=== PATIENT | female | born 1935 | race Caucasian/White ===

== ENCOUNTER 2018-08-21 09:00 | Day surgery (SDC) | payer MEDICARE | END 2018-08-21 23:15 | disposition home or self-care (01) | LOC: MOI US 09:00 | DX: N63.42 Unspecified lump in left breast, subareolar (principal) | CPT/HCPCS: 19083; 38505; 76942; 77065; 88305; 88360; A4648 ==

== ENCOUNTER → 2018-08-29 | Outpatient (CLI) | payer MEDICARE ==
[~2018-08-29] MED LIST: METO25ER
== END | disposition home or self-care (01) ==
LOC: LAB SHORT 07:40 → PLD 07:40
DX: C50.912 Malignant neoplasm of unspecified site of left female breast (principal)
CPT/HCPCS: 88305; 88342

== ENCOUNTER 2018-12-15 20:58 | Emergency (ER) | payer MEDICARE ==
[~2018-12-15] VITALS: Ht 167.6 cm; Wt 88.5 kg
[2018-12-15] MEDS ORDERED: METO25ER (21:24)
== END 2018-12-15 23:15 | disposition home or self-care (01) ==
LOC: ER 20:58
DX: S81.811A Laceration without foreign body, right lower leg, initial encounter (principal); W19.XXXA Unspecified fall, initial encounter; C50.919 Malignant neoplasm of unspecified site of unspecified female breast; Z88.5 Allergy status to narcotic agent; Z79.899 Other long term (current) drug therapy
CPT/HCPCS: 12002; 90471; 90714; 99283-25

== ENCOUNTER 2019-01-22 08:18 | Day surgery (SDC) | payer MEDICARE ==
[~2019-01-22 08:18] MED LIST changes: -METO25ER; +METO25ER PO
[2019-02-13] MEDS ORDERED: HYDR1TAB94 PO (09:06)
== END 2019-01-22 22:56 | disposition home or self-care (01) ==
LOC: MOI US 08:18
DX: C50.912 Malignant neoplasm of unspecified site of left female breast (principal); Z79.899 Other long term (current) drug therapy; Z88.5 Allergy status to narcotic agent
CPT/HCPCS: 19285; 38505

== ENCOUNTER 2021-10-01 19:32 | Observation (INO) | payer MEDICARE ==
[~2021-10-01] VITALS: Ht 167.6 cm; Wt 79.6 kg
[~2021-10-01 19:32] MED LIST changes: +HYDR1TAB94 PO
[2021-10-01 20:18] LABS: BASOPHILS ABSOLUTE AUTO 0.03 K/mm3 (0.00-0.23); BASOPHILS PERCENT AUTO 1 % (0-2); EOSINOPHILS PERCENT AUTO 3 % (0-6); Hematocrit 43.6 % (33.0-51.0); Hemoglobin 14.7 g/dL (11.5-16.0); IMMATURE GRAN ABSOLUTE AUTO 0.02 K/mm3 (0.00-0.10); IMMATURE GRAN PERCENT AUTO 0 % (0-1); LYMPHOCYTES ABSOLUTE AUTO 1.19 K/mm3 (0.84-5.20); LYMPHOCYTES PERCENT AUTO 19 % (21-46); MONOCYTES ABSOLUTE AUTO 0.39 K/mm3 (0.16-1.47); MONOCYTES PERCENT AUTO 6 % (4-13); Mean Corpuscular HGB 31.7 pg (26.0-34.0); Mean Corpuscular HGB Conc 33.7 g/dL (31.5-36.5); Mean Corpuscular Volume 94 fL (80-100); NEUTROPHILS ABSOLUTE AUTO 4.43 K/mm3 (1.96-9.15); NEUTROPHILS PERCENT AUTO 71 % (41-73); Platelet Count 187 K/mm3 (150-400); RDW Coefficient Variation 13.7 % (11.7-14.2); RDW Standard Deviation 47.2 fL (35.1-46.3); Red Blood Cell Count 4.64 M/mm3 (3.80-5.20); White Blood Cell Count 6.26 K/mm3 (4.00-11.30)
[2021-10-01 20:36] LABS: Bilirubin, Total 1.7 mg/dL (0.1-1.0); Bun/Creatinine Ratio 14.9 (12.0-20.0); Calcium, Blood 8.6 mg/dL (8.5-10.1); Creatinine, Blood 1.01 mg/dL (0.40-1.00); Potassium, Blood 3.5 mmol/L (3.5-5.5)
[2021-10-02] MEDS ORDERED: ATOR20 PO (00:58)
[2021-10-02] MEDS ORDERED: NEBI5 PO (00:59)
[2021-10-02 04:07] LABS: Stool Occult Blood Guaiac 1 Pos (Neg)
--- NOTE | 2021-10-02 05:24 | NUR ---
NOC SHIFT SUMMARY PT ARRIVED FROM ER @ 0040, TRANSFERRED TO BED FROM STRETCHER W/MINIMAL HANDS ON ASSISTANCE. ORIENTED TO ROOM/UNIT AND CALL LIGHT. VSS PER PT TREND, SR ON TELEMETRY. PT DENIES ANY DIZZINES, CHEST PAIN OR PRESSURE. ORIENTED X4, CALM AND COOPERATIVE PT HAD LOOSE WATERY BM X1 OVERNIGHT W/SOME BLOOD NOTED. NOTIFIED AND ORDER FOR CDIFF AND OCCULT BLOOD RECEIVED. WILL CONTINUE TO MONITOR AND PASS ON TO DAY RN
[2021-10-02 06:01] LABS: Bun/Creatinine Ratio 17.9 (12.0-20.0); Calcium, Blood 8.5 mg/dL (8.5-10.1); Creatinine, Blood 0.95 mg/dL (0.40-1.00); Potassium, Blood 3.7 mmol/L (3.5-5.5)
[2021-10-02 06:33] LABS: C DIFFICILE DNA NEGATIVE (Negative)
[2021-10-02 08:55] LABS: Hematocrit 41.6 % (33.0-51.0); Hemoglobin 13.9 g/dL (11.5-16.0); Mean Platelet Volume 10.9 fL (9.1-12.4); Platelet Count 184 K/mm3 (150-400)
[2021-10-02 09:05] LABS: Anti-Xa UFH, PHA Monitoring <0.10 IU/mL; International Normalized Ratio 1.03; Prothrombin Time Results 10.8 Sec (9.7-11.5)
--- NOTE | 2021-10-02 09:10 | NUR ---
TRIGEMINY: AT ABOUT 0840 MIGUEL,[facility] [employer] REPORTED THAT PT HAD TRIGEMINY RHYTHM FOR ABOUT 1 MINUTE STARTING AT 0834. RHYTHM STRIPS PRINTED. NO ACUTE CHANGE IN PT STATUS, A/O, DENIES CP. PT HAVING ECHO COMPLETED CURRENTLY. WILL CTM AND MAKE DR. SALTER AWARE AT ROUNDS.
[2021-10-02] MEDS ORDERED: ASPI81CH PO (13:12)
--- NOTE | 2021-10-02 14:46 | NUR ---
DISCHARGE: HEPARIN STOPPED AT DISCHARGE. IV'S DC'D WNL. DISCHARGE PACKET PRINTED AND PT EDUCATED. PT LEFT UNIT VIA WHEELCHAIR AT ABOUT 1430
== END 2021-10-02 14:43 | disposition home or self-care (01) ==
LOC: ER 19:32 → PCU 19:33
PROVIDERS: Family Medicine; Student in an Organized Health Care Education/Training Program; ADMIT Internal Medicine
DX: R55 Syncope and collapse (principal); R74.8 Abnormal levels of other serum enzymes; I12.9 Hypertensive chronic kidney disease with stage 1 through stage 4 chronic kidney disease, or unspecified chronic kidney disease; N18.30 Chronic kidney disease, stage 3 unspecified; I25.10 Atherosclerotic heart disease of native coronary artery without angina pectoris; Z87.891 Personal history of nicotine dependence; Z88.0 Allergy status to penicillin; Z88.5 Allergy status to narcotic agent; Z79.899 Other long term (current) drug therapy
CPT/HCPCS: 36415; 71046; 80048; 80053; 82270; 82947; 83735; 84484; 85014; 85018; 85025; 85049; 85520; 85610; 85730; 87493; 93005; 93010; 93246; 93306; 96374; 99285-25; A9270; G0378; J1644; J7030

== ENCOUNTER 2022-10-11 08:42 | Inpatient (IN) | payer MEDICARE ==
[~2022-10-11] VITALS: Ht 167.6 cm; Wt 84.4 kg
[~2022-10-11 08:42] MED LIST changes: +ASPI81CH PO; +ATOR20 PO; +NEBI5 PO
[2022-10-11 10:38] LABS: Albumin, Blood 3.4 g/dL (3.4-5.0); Albumin/Globulin Ratio 1.1 (0.8-1.8); Bilirubin, Total 2.8 mg/dL (0.1-1.0); Bun/Creatinine Ratio 25.4 (12.0-20.0); Calcium, Blood 8.9 mg/dL (8.5-10.1); Creatinine, Blood 1.85 mg/dL (0.40-1.00); Globulin, Blood 3.2 g/dL (2.2-4.0); Potassium, Blood 4.8 mmol/L (3.5-5.5); Total Protein, Blood 6.6 g/dL (6.4-8.2)
[2022-10-11 11:14] LABS: BASOPHILS ABSOLUTE AUTO 0.04 K/mm3 (0.00-0.23); BASOPHILS PERCENT AUTO 0 % (0-2); EOSINOPHILS ABSOLUTE AUTO 0.02 K/mm3 (0.00-0.68); EOSINOPHILS PERCENT AUTO 0 % (0-6); Hematocrit 45.4 % (33.0-51.0); Hemoglobin 15.2 g/dL (11.5-16.0); IMMATURE GRAN ABSOLUTE AUTO 0.05 K/mm3 (0.00-0.10); IMMATURE GRAN PERCENT AUTO 1 % (0-1); LYMPHOCYTES ABSOLUTE AUTO 2.06 K/mm3 (0.84-5.20); LYMPHOCYTES PERCENT AUTO 20 % (21-46); MONOCYTES ABSOLUTE AUTO 0.77 K/mm3 (0.16-1.47); MONOCYTES PERCENT AUTO 7 % (4-13); Mean Corpuscular HGB 31.9 pg (26.0-34.0); Mean Corpuscular HGB Conc 33.5 g/dL (31.5-36.5); Mean Corpuscular Volume 95 fL (80-100); Mean Platelet Volume 12.2 fL (9.1-12.4); NEUTROPHILS ABSOLUTE AUTO 7.48 K/mm3 (1.96-9.15); NEUTROPHILS PERCENT AUTO 72 % (41-73); NRBC ABSOLUTE 0.03 K/mm3 (0.00-0.02); NRBC Auto 0.3 /100 WBC (0.0-0.2); Platelet Count 199 K/mm3 (150-400); RDW Standard Deviation 48.3 fL (35.1-46.3); Red Blood Cell Count 4.76 M/mm3 (3.80-5.20); White Blood Cell Count 10.42 K/mm3 (4.00-11.30)
[2022-10-11 11:19] LABS: International Normalized Ratio 1.32; Prothrombin Time Results 13.6 Sec (9.7-11.5)
[2022-10-11 12:45] LABS: Free Thyroxine 1.53 ng/dL (0.70-1.60)
[2022-10-11 12:46] LABS: Triiodothyronine, Free 1.84 pg/mL (2.18-3.98)
[2022-10-11 14:52] VITALS: BP 108/86
[2022-10-11] MEDS ORDERED: NEBI5 PO (15:03)
[2022-10-11] MEDS ORDERED: POTA10T PO (15:04)
[2022-10-11] MEDS ORDERED: FURO20 PO (15:04)
[2022-10-11 19:51] VITALS: BP 117/85
--- NOTE | 2022-10-11 21:20 | NUR ---
ASSUMED PT ANJALI STEVE RN ON . A&OX4. DENIES ANY CHEST PAIN/PRESSURE. HR AFIB 100-120'S WITH STABLE BP, SEE RECORDED VITAL SIGNS. STATES MILD SOB, ONGOING FOR LAST SEVERAL WEEKS. O2 SATS > 92% ON RA. RESPIRATIOS INCREASED INTO MID 20'S WITH CONVERSATION AND MOVEMENT, NO DESATURATION NOTED. AUDIBLE WHEEZING NOTED WITHOUT NEED FOR STETHOSCOPE. WILL MONITOR. DENIES NAUSEA AT THIS TIME. REPORTS AVOIDING PO INTACT OF LATE BECAUSE OF NAUSEA. PO FLUIDS ENCOURAGED DUE TO NO VOID, BLADDER SCAN 79. WILL MONITOR. DENIES NEEDS AT THIS TIME. CALL LIGHT IN REACH.
[2022-10-11 23:42] VITALS: BP 139/125
--- NOTE | 2022-10-11 23:43 | NUR ---
PT COMPLAINTING OF ANXIETY AND SOB. O2 SATS 98% ON RA, 2 LPM PLACED FOR COMFORT. MEDICATED FOR ANXIETY. AUDIBLE WHEEZING HEARD WITHOUT STETHASCOPE BUT LUNG SOUNDS CLEAR IN ALL AGUDELO. PT UP TO BSC FOR BM, NO URINE VOIDED. AFTER RETURNING TO BED PT REPORT SOB SUBSIDED AND ANXIETY IMPROVED. DR. POOLE INFORMED OF PT NOT PRODUCING URINE AFTER INCREASING PO INTAKE. STARTED ON IV FLUIDS. WILL MONITOR CLOSELY FOR FLUID OVERLOAD. LEFT RESTING IN BED. CALL LIGHT IN REACH. BED IN LOW POSITION.
[2022-10-12] VITALS (12 sets, daily range): BP systolic 82–121; BP diastolic 52–86
[2022-10-12 04:03] LABS: Albumin, Blood 3.2 g/dL (3.4-5.0); Albumin/Globulin Ratio 1.1 (0.8-1.8); Bilirubin, Total 2.8 mg/dL (0.1-1.0); Bun/Creatinine Ratio 25.6 (12.0-20.0); Calcium, Blood 8.4 mg/dL (8.5-10.1); Creatinine, Blood 2.03 mg/dL (0.40-1.00); Globulin, Blood 2.8 g/dL (2.2-4.0); Potassium, Blood 4.1 mmol/L (3.5-5.5)
--- NOTE | 2022-10-12 05:06 | NUR ---
HR CONTINUES IN THE 100'S-120'S. DENIES CHEST PAIN. ANXIETY IMPROVED. PT CONTINUES TO HAVE AUDIBLE WHEEZING WITH CLEAR LUNG AGUDELO THROUGHT. BP REMAINS STABLE. PT UP TO BSC WITH UNSTEADY GAIT, 1 ASSIST. VOIDS 125 ML CLEAR, GAGAN URINE WITH STRONG ODER. DR. POOLE INFORMED OF PT LOW URINE OUTPUT, NO NEW ORDERS AT THIS TIME. IV FLUIDS CONTINUE TO INFUSE ORDERED. NO SWELLING NOTED. LEFT RESTING IN BED. CALL LIGHT IN REACH. BED IN LOW POSITION.
--- NOTE | 2022-10-12 11:14 | NUR ---
ECHO IS COMPLETE. PT'S PRESSURES HAVE BECOME SOFT, PT HAS NOT HAD ANY SIGNIFICANT RATE CHANGE WITH CARDIZEM AT 20ML/HR, BP IS CONSISTANTLY BECOMING MORE SOFT. DECISION WAS MADE TO TITRATE CARDIZEM TO 15ML/HR.
[2022-10-12 12:10] LABS: Albumin, Blood 3.2 g/dL (3.4-5.0); Anion Gap 11 mmol/L (6-16); Blood Urea Nitrogen 51 mg/dL (8-24); Bun/Creatinine Ratio 24.2 (12.0-20.0); CO2, Blood 18 mmol/L (21-32); Calcium, Blood 8.6 mg/dL (8.5-10.1); Chloride, Blood 102 mmol/L (98-108); Creatinine, Blood 2.11 mg/dL (0.40-1.00); Glomerular Filtration Rate 22 (60-); Glucose, Blood 145 mg/dL (70-99); Magnesium, Blood 1.8 mg/dL (1.6-2.4); Phosphorus, Blood 3.9 mg/dL (2.5-4.9); Potassium, Blood 3.6 mmol/L (3.5-5.5); Sodium, Blood 131 mmol/L (136-145)
--- NOTE | 2022-10-12 13:27 | NUR ---
Spiritual care visit conducted. Patient is lying in bed and alert but struggling with weakness, slurry words and some confusion. Her dtr. Reyna is bedside. She tells me about the family dynamic and that she has 5 siblings and one sister that lives next door to patient and Reyna (patient lives in Reyna's house). They share about their Confucianist audra and strong family whiting and prayers. Patient asks for prayer which I gladly supply. Patient gets sleepy during the prayer but voices appreciation. Reyna expresses gratitude and states that she feels more at peace. I will continue to remain available to patient and family.
--- NOTE | 2022-10-12 14:17 | NUR ---
Pt resting in bed upon arrival. Pt's daughter Reyna at bedside. Pt is A&OX4. Engaged in therapeutic discussion regarding advanced care planning. Pt reports living at home with her daughter. Pt has several other children and most live out of area. Daughter reports Pt is not able to ambulate as far as she once did. Over the last couple of months Pt is able to only ambulate to the bathroom. Pt also requires assistance with bathing and dressing. Provided gentle discussion regarding planning for the future. Discussed code status wishes. Educated on life sustaining treatments including risks and implications to CPR/Intubation. Offered therapeutic listening and answered questions. Pt's wishes are DNR. Pt and daughter agreeable to complete POLST. Assisted with completing POLST and at the request of the PT, daughter signs POLST. Spoke with Dr Duarte and placed DNR order in [facility] per V/O from Dr Duarte. Plan: Obtain copy of POLST upon physician signature and deliver to medical records. Palliative Care will remain available
--- NOTE | 2022-10-12 17:36 | NUR ---
PT A/O X4, ANSWERING QUESTIONS APPROPRIATELY IN FULL SENTENCES. PT DENIES CP. DOES COMPLAIN OF SOME SOB THAT DID RESOLVE WITH A BREATHING TREATMENT. PT HAS NOTED WHEEZING WHEN TALKING TO HER, BUT HER LUNG SOUNDS ARE CLEAR WITH BRONCHIAL WHEEZE NOTED TO AUSCILTATION. REMAINS ON RA T/O THE DAY. SHE REMAINS IN A-FIB, CARDIZEM HAS BEEN TITRATED TO 15ML/HR WHICH HER BLOOD PRESSURE IS TOLERATING WELL. PT REPORTS INTERMITTENT WEAKNESS. TRACE EDEMA NOTED TO LOWER LEGS BILAT. PULSES +2 T/O ALL 4 EXTREMETIES. 24 HOUR URINE COLLECTION HAS BEGAN, PT WITH VERY SCANT OUTPUT TODAY. DR LAWSON HAS CONSULTED
[2022-10-12 18:51] LABS: Source, Urine Clean Catch
[2022-10-12 18:57] LABS: Appearance, Urine Hazy (Clear); Bilirubin, Urine Neg (Neg); Blood, Urine 3+ (Neg); Color, Urine Yellow (P-Yellow); Glucose Qualitative, Urine Neg (Neg); Ketones, Urine Neg (Neg); Leukocyte Esterase, Urine 3+ (Neg); Nitrite, Urine Neg (Neg); Protein, Urine 2+ (Neg); Urobilinogen, Urine NORM (Normal)
[2022-10-12 19:04] LABS: Bacteria Many /hpf; Squamous Epithelial Cells Mod /hpf (Few); Transitional Epithelial Cells Few /hpf (0-Rare); White Blood Cells, Urine 25-50 /hpf (0-5)
--- NOTE | 2022-10-12 23:03 | NUR ---
ASSUMED CARE AT 1900 PT SITTING ON BSC AT SHIFT CHANGE. SHE IS A ONE PERSON ASSIST TO STAND AND ASSIST WITH GETTING BACK INTO BED; MINIMAL URINE OUTPUT IN BSC. SHE IS ORIENTED X3-4; VERY TIRED AND NOT PARTICIPATING IN CONVERSATIONS; SHE IS SLEEPING WHEN NOT STIMULATED; GENERALIZED WEAKNESS NOTED. SPO2 >95% ON RA. AFEBRILE. AFIB NOTED WITH HR 100-125; CARDIZEM TITRATED DOWN TO 10MG/HR DUE TO BP NOT TOLERATING 15 ANYMORE; SBP 80-90'S, MAP 70-80'S; NO C/O CHEST PAIN OR DYSPNEA. 24 [address] COLLECTION IN PL[address] RIGHT NOW. NS INFUSING AT 75ML/HR. SEE SHIFT ASSESSMENT FOR FULL ASSESSMENT. PT DAUGHTER ALAN AT BEDSIDE AT SHIFT CHANGE. SHE LEFT AROUND 1999.
[2022-10-13] VITALS (22 sets, daily range): BP systolic 76–110; BP diastolic 53–85
[2022-10-13 03:54] LABS: Hematocrit 38.3 % (33.0-51.0); Hemoglobin 13.4 g/dL (11.5-16.0)
[2022-10-13 04:17] LABS: Albumin, Blood 3.2 g/dL (3.4-5.0); Anion Gap 10 mmol/L (6-16); Blood Urea Nitrogen 51 mg/dL (8-24); Bun/Creatinine Ratio 21.3 (12.0-20.0); CO2, Blood 18 mmol/L (21-32); Calcium, Blood 8.3 mg/dL (8.5-10.1); Chloride, Blood 97 mmol/L (98-108); Creatinine, Blood 2.39 mg/dL (0.40-1.00); Glomerular Filtration Rate 19 (60-); Glucose, Blood 149 mg/dL (70-99); Magnesium, Blood 1.6 mg/dL (1.6-2.4); Phosphorus, Blood 4.8 mg/dL (2.5-4.9); Potassium, Blood 4.1 mmol/L (3.5-5.5); Sodium, Blood 125 mmol/L (136-145)
--- NOTE | 2022-10-13 06:29 | NUR ---
END OF SHIFT SUMMARY NO ACUTE EVENTS OVERNIGHT. THIS AM PT STATES THAT SHE IS FEELING BETTER. SHE WAS ABLE TO SLEEP A MAJORITY OF THE NIGHT. PT IS A/O X4 AND MORE COMMUNICATIVE NOW. SPO2 >96% ON RA; ONE EPISODE OF DYSPNEA WITH EXERTION TO THE BSC BUT SPO2 DID NOT DECREASE AND THE DYSPNEA RESOLVED WITH REST. CARDIZEM ON SB SINCE 2247; AFIB CONT TO SHOW BUT HR 80-120; SBP 80-110, MAP 70-80'S. ONE EPISODE OF NAUSEA NOTED, ZOFRAN GIVEN WITH RELIEF. 24 HOUR URINE COLLECTION STILL IN PLACE UNTIL 1744 TODAY; VERY LITTLE URINE OUTPUT THIS SHIFT; BLADDER SCAN DONE AT 0530 THAT SHOWED 125ML. NS INFUSED DURING THE NIGHT AT 75ML/HR; AFTER BLADDER SCAN, NS PLACED ON SB. WILL REPORT TO AM RN WHEN AVAILABLE.
--- NOTE | 2022-10-13 10:01 | NUR ---
AM NOTE: ALERT AND ORIENTED X3-4. VERY SOFT SPOKEN. PERRLA, WEARING GLASSES. DENTURES IN PLACE. NO FACIAL DROOP NOTED. SPEECH CLEAR. BILATERAL RAILROAD CAR CLEANER STRENGTH AND EXTREMITY MOVEMENTS. UP TO BSC WITH ONE PERSON ASSIST. OT/PT ORDERS IN PLACE. ON ROOM AIR SATING ABOVE 95%. LUNGS CLEAR AND DIM IN BASES. OCCASIONAL UPPER AIRWAY WHEEZE. EVEN AND UNLABORED RESPIRATIONS. SOB WHEN UP TO BSC. ON TELE SHOWING AFIB WITH HR 90-110'S. CARDIZEM GTT TURNED OFF BY [facility] SHIFT NURSE. PO CARDIZEM GIVEN THIS AM. BP ON SOFTER SIDE. PPP. DENIES CHEST PAIN/PRESSURE/PALPITATIONS. MINIMAL EDEMA TO UPPER AND LOWER EXTREMITIES. UPON AM ASSESSMENT PATIENT DENIED ABDOMINAL PAIN/NAUSEA. CLEAR LIQUID DIET AT THIS TIME. SPEECH THERAPY ORDERS IN PLACE, PLAN TO SEE THIS AFTERNOON. PATIENT UP TO BSC MULTIPLE TIMES THIS AM HAVING SMALL LIQUID BROWN STOOLS. UPON GETTING UP TO BSC THIS LAST TIME, PATIENT STATES SHE IS SICK TO HER STOMACH, NO EMESIS. DR. CASAREZ CALLED AND UPDATED ON NAUSEA, FREQUENT BOWEL MOVEMENTS AND MINIMAL URINE OUTPUT. ORDERS FOR ZOFRAN IV 4MG PRN Q4, PROTONIX 40 MG IV BID AND TO DC CURRENT PO PEPCID. ORDERS IN PLACE. DR. LAWSON BY THIS AM, THIS RN DISCUSSED MINIMAL URINE OUTPUT. ORDERS FOR LASIX IV 40MG X1 NOW, DC CURRENT PO LASIX, AND CONTINUE IV FLUIDS. LATER THIS AM IV FLUID CHANGE ORDER FROM DR. LAWSON TO SODIUM BICARB. IV FLUIDS INFUSING PER EMAR. 24 HOUR URINE COLLECTION IN PROGRESS. BLADDER SCAN COMPLETED THIS AM SHOWING 140 ML. PATIENT DENIES FEELING LIKE SHE HAS TO PEE. FAMILY AT BEDSIDE AND UPDATED ON ORDER CHANGES AND PLAN OF CARE. DNR BAND ON LEFT WRIST. CALL LIGHT IN REACH. PATIENT AND FAMILY DENIES NEEDS AT THIS TIME.
--- NOTE | 2022-10-13 11:43 | NUR ---
Spiritual care visit conducted. Patient is lying in bed and resting. Dtr. Reyna is bedside and explains that they are still waiting for information form the medical team. She also tells me that many family members are travelling from several different areas to come to the hospital to support Renita. She has her eyes closed but chimes in on the conversation every once in a while. We talks about the family dynamics and the deep love the family poccesses for each other. There is more conversation around their audra and the strength it brings. I provide therapeutic listening and prayer. Reyna responded well and voiced appreciation for the visit. I will cotninue to remain available to patient and family.
--- NOTE | 2022-10-13 12:11 | NUR ---
Supportive visit this AM. Pt resting in bed with daughter Reyna at bedside. Offered therapeutic listening as daughter and Pt discusses kidney function getting worse. Continued therapeutic listening and answered questions. Encouraged Pt to discuss with family if Kidney functions do not improve and dialisys becomes recommended what would her goals be. Continued therapeutic listening and validated concerns. POLST signed by physician. Obtained copy of POLST and delivered to medical records via hospital tube system. Gave daughter original POLST and instructed to take home and hang on refridgerator. Pt and daughter express appreciation and report no other concerns at this time. Spoke with Primary RN Indu and discussed case. Palliative Care will remain available
[2022-10-13 12:53] LABS: Source, Urine Foley catheter
--- NOTE | 2022-10-13 13:05 | NUR ---
CLEMENTS CATH PLACED PER DR. LAWSON. NEW URINE SAMPLE SENT PER PROTOCOL. DR. CASAREZ IN TO SEE PATIENT. SEE NEW ORDERS PLACED. DAUGHTER AT BEDSIDE FOR HOSP VISIT.
[2022-10-13 13:10] LABS: Appearance, Urine Clear (Clear); Bilirubin, Urine Neg (Neg); Blood, Urine Neg (Neg); Color, Urine Yellow (P-Yellow); Glucose Qualitative, Urine Neg (Neg); Ketones, Urine Neg (Neg); Leukocyte Esterase, Urine Neg (Neg); Nitrite, Urine Neg (Neg); Protein, Urine 2+ (Neg); Specific Gravity, Urine 1.025 (1.003-1.022); Urobilinogen, Urine NORM (Normal)
[2022-10-13 13:25] LABS: Hyaline Casts TNTC /lpf (0-2)
[2022-10-13 13:26] LABS: Red Blood Cells, Urine 0-2 /hpf (0-2); White Blood Cells, Urine 0-2 /hpf (0-5)
[2022-10-13 13:27] LABS: Bacteria Rare /hpf; Calcium Oxalate Crystals Few /hpf; Squamous Epithelial Cells Few /hpf (Few)
[2022-10-13 14:01] LABS: Adenovirus F 40/41 Not Detected (NOT DETECT); Astrovirus Not Detected (NOT DETECT); Campylobacter Sp Not Detected (NOT DETECT); Cryptosporidium Not Detected (NOT DETECT); Cyclospora Cayetanensis Not Detected (NOT DETECT); E. Coli O157 Not Detected (NOT DETECT); Entamoeba Histolytica Not Detected (NOT DETECT); Enteroaggregative E. coli-EAEC Not Detected (NOT DETECT); Enteropathogenic E. coli-EPEC Not Detected (NOT DETECT); Enterotoxigenic E. coli-ETEC Not Detected (NOT DETECT); Giardia Lamblia Not Detected (NOT DETECT); Norovirus GI/GII Not Detected (NOT DETECT); Plesiomonas Shigelloides Not Detected (NOT DETECT); Rotavirus A Not Detected (NOT DETECT); Salmonella Sp Not Detected (NOT DETECT); Sapovirus Not Detected (NOT DETECT); Shiga Toxin-prod E. coli-STEC Not Detected (NOT DETECT); Shigella/Enteroin E. coli-EIEC Not Detected (NOT DETECT); Vibrio Cholerae Not Detected (NOT DETECT); Vibrio Sp Not Detected (NOT DETECT); Yersinia Enterocolitica Not Detected (NOT DETECT)
--- NOTE | 2022-10-13 14:02 | NUR ---
BLOOD PRESSURE 76/53. NS 500ML BOLUS GIVEN PER DR. SMITH ORDERS. BP IMPROVED TO 93/78. HR 80'S. NEW ORDERS FOR HOME PO METOPROLOL, ALTHOUGH NOT ABLE TO GIVE DUE TO LOW BLOOD PRESSURE. PO CARDIZEM DC'D PER HOSP. URINE AND STOOL SAMPLES PENDING. ECHO RESULTS PENDING. ORDERS FOR BILATERAL LOWER EXTREMITY VENOUS DUPLEX TO RULE OUT CLOTS. SPEECH THERAPY IN ROOM AT THIS TIME. SODIUM BICARB FLUIDS CONTINUE TO INFUSE PER EMAR. 24 HOUR URINE IN PROGRESS. DAUGHTER REMAINS AT BEDSIDE.
--- NOTE | 2022-10-13 15:18 | NUR ---
PATIENT BLOOD PRESSURE REMAINS SOFT. SOB WHEN UP TO BSC, CONTINUES TO HAVE LOOSE/LIQUID BOWEL MOVEMENTS. LUNGS REMAINS CLEAR AND DIM IN BASES. DR. CASAREZ CALLED AND UPDATED. NEW ORDER FOR ADDITIONAL NS 500ML BOLUS FOLLOWED BY NS AT 50ML/HR IN ADDITION TO CURRENT SODIUM BICARB AT 50 ML/HR. PATIENT AND FAMILY UPDATED.
--- NOTE | 2022-10-13 18:22 | NUR ---
SHIFT SUMMARY: FAMILY REMAINS AT BEDSIDE AND UPDATED THROUGHOUT SHIFT. ECHO READ BUT RESULTS NOT CROSSING OVER TO [facility]. X RAY TECHNICIAN WAYNE STEEN PLACED CALL TO CARDIOLOGY AND RESULTS READ. DR. CASAREZ UPDATED ON ECHO RESULTS. PLAN TO SPEAK WITH FAMILY IN AM ABOUT ECHO. VENOUS DUPLEX COMPLETED. CLEMENTS CATH REMAINS IN PLACE DRAINING MINIMAL URINE OUTPUT, 195ML COLLECTED THIS SHIFT. MULTIPLE LOOSE BOWEL MOVEMENTS. NS AND SODIUM BICARB INFUSING PER EMAR. EATING AND DRINKING SMALL AMOUNTS. ONE EPISODE OF NAUSEA THIS SHIFT. BP IMPROVING WITH MOST RECENT READING 101/76 (84). HR 90-110'S REMAINS IN AFIB. PATIENT RECENTLY COMPLAINS OF NECK SORENESS, AND REQUESTING HEATING PAD. NEURO REMAINS UNCHANGED THROUGHOUT SHIFT. ABLE TO MAKE NEEDS KNOWN. USING CALL LIGHT. DR. CASAREZ UPDATED THROUGHOUT SHIFT.
--- NOTE | 2022-10-13 19:45 | NUR ---
ASSESSMENT/ASSUMED CARE PT HAVING A BED BATH AND LINEN CHANGE WITH PLATE PUT IN WORKER'S. PT AWAKE AND A&O. FOLLOWS INSTRUCTIONS. LUNGS CLEAR BUT DECREASED. PT ON ROOMAIR. RESP EVEN AND NONLABORED. PT REPORTS SOB WHILE LYING FLAT. IMPROVES WHEN SITTING UP. RED AREA NOTED UNDER LEFT BREAST. CLEANED AND PAT DRY. PILLOW CASE UNDER BREAST TO PREVENT MOISTURE. HEART RATE IRREGULAR-AFIB. KAVON HOSE ON. BT+ ABD SOFT AND NONTENDER. DENIES N/V. IV POWER GLIDE TO RIGHT UPPER ARM, DRSG INTACT. NS AT 50 ML/HR AND BICARB AT 50 ML/HR. SITE CLEAR. IV TO RIGHT WRIST FLUSHED WITHOUT DIFFICULTY. CLEMENTS CATH PATENT SLIGHT AMT CLEAR YELLOW URINE DRAINING. PLATE PUT IN WORKER DONING CATH CARE.
[2022-10-13 20:11] LABS: Protein, Urine Quantitative 37.3 mg/dL (0.0-11.9)
--- NOTE | 2022-10-13 20:11 | NUR ---
HEART RATE CONVERTED TO SINUS IN THE 60-70'S
--- NOTE | 2022-10-13 22:27 | NUR ---
o2 PT UP TO BSC THAN BACK TO BED. SPO2 DOWN TO 84% AND ONLY BACK UP TO 90-91% WHEN BACK TO BED. PLACED ON 2 LITER O2 VIA NC. SPO2 NOW 95-96%
[2022-10-14] VITALS (7 sets, daily range): BP systolic 95–110; BP diastolic 61–86
[2022-10-14 04:33] LABS: BASOPHILS ABSOLUTE AUTO 0.02 K/mm3 (0.00-0.23); BASOPHILS PERCENT AUTO 0 % (0-2); EOSINOPHILS ABSOLUTE AUTO 0.07 K/mm3 (0.00-0.68); EOSINOPHILS PERCENT AUTO 1 % (0-6); Hematocrit 33.6 % (33.0-51.0); Hemoglobin 11.9 g/dL (11.5-16.0); IMMATURE GRAN ABSOLUTE AUTO 0.03 K/mm3 (0.00-0.10); IMMATURE GRAN PERCENT AUTO 0 % (0-1); LYMPHOCYTES ABSOLUTE AUTO 1.39 K/mm3 (0.84-5.20); LYMPHOCYTES PERCENT AUTO 15 % (21-46); MONOCYTES ABSOLUTE AUTO 0.71 K/mm3 (0.16-1.47); MONOCYTES PERCENT AUTO 7 % (4-13); Mean Corpuscular HGB 32.1 pg (26.0-34.0); Mean Corpuscular HGB Conc 35.4 g/dL (31.5-36.5); Mean Corpuscular Volume 91 fL (80-100); NEUTROPHILS ABSOLUTE AUTO 7.34 K/mm3 (1.96-9.15); NEUTROPHILS PERCENT AUTO 77 % (41-73); Platelet Count 170 K/mm3 (150-400); RDW Coefficient Variation 13.8 % (11.7-14.2); RDW Standard Deviation 43.8 fL (35.1-46.3); Red Blood Cell Count 3.71 M/mm3 (3.80-5.20); White Blood Cell Count 9.56 K/mm3 (4.00-11.30)
[2022-10-14 04:58] LABS: Albumin, Blood 2.7 g/dL (3.4-5.0); Albumin/Globulin Ratio 1.1 (0.8-1.8); Bilirubin, Total 2.1 mg/dL (0.1-1.0); Calcium, Blood 7.7 mg/dL (8.5-10.1); Creatinine, Blood 2.35 mg/dL (0.40-1.00); Globulin, Blood 2.5 g/dL (2.2-4.0); Magnesium, Blood 1.4 mg/dL (1.6-2.4); Phosphorus, Blood 3.5 mg/dL (2.5-4.9); Potassium, Blood 3.4 mmol/L (3.5-5.5); Total Protein, Blood 5.2 g/dL (6.4-8.2)
--- NOTE | 2022-10-14 05:18 | NUR ---
CALL TO MD DR LAWSON NOTIFIED REGARDING AM LABS. SEE NEW ORDERS
--- NOTE | 2022-10-14 05:59 | NUR ---
SHIFT SUMMARY PT RESTING QUIETLY. TURNED PER REQUEST. VSS. MAG RIDER INFUSING AT THIS TIME. DC'D BICARB GTT. DENIES PAIN. INCONT SMALL AMT STOOL. CLEMENTS CATH PATENT DRAINING CLEAR YELLOW URINE. LABS CALLED TO DR LAWSON THIS AM. REPORT TO ON COMING NURSE
--- NOTE | 2022-10-14 06:32 | NUR ---
MD VISIT DR LAWSON INTO SEE PT. RECEIVED ORDER TO STOP IV FLUID, GIVE BUMEX AND DIETARY CONSULT FOR CLINIMIX.
--- NOTE | 2022-10-14 09:38 | NUR ---
AM NOTE: PATIENT ALERT AND ORIENTED. STATES SHE IS FEELING MUCH BETTER COMPARED TO YESTERDAY. DAUGHTERS AT BEDSIDE UPON MEDIUM CYCLE SALESPERSON. PERRLA, WEARING GLASSES. DENIES N/T. OVERALL WEAK, AND STATES "I DONT HAVE MUCH ENERGY". INTERMIT RIGHT SHOUDLER AND LEFT HIP CHRONIC PAIN. DENIES NEED FOR LIDOCAINE PATCH THIS AM. USING BED TOMLINSON DUE TO LOW ENERGY AND SOB. TELE SHOWING SR WITH HR 70'S. BP ON SOFTER SIDE. PPP. MINIMAL EDEMA TO BLE/BUE. CARDIOLOGY CONSULT IN PLACE. DR. DE LA CRUZ TO BEDSIDE. ECHO REPORT IN CHART. PLAN FOR DIETARY CONSULT TO START CLINIMIX. CALL PLACED TO CONFIRM WITH MALIA, LEATHER ETCHER. EATING AND DRINKING SMALL AMOUNTS. BOWEL TONES PRESENT. CONTINUES TO HAVE LIQUID/LOOSE BOWEL MOVEMENTS. CLEMENTS CATH IN PLACE DRAINING TO GRAVITY. CATH CARE COMPLETED THIS AM AND WITH EACH BOWEL MOVEMENT. DENIES ABDOMINAL PAIN/NAUSEA. SOB WITH MOVEMENTS AND TALKING LUNGS SOUNDING CLEAR AND DIM IN BASES. SATING ABOVE 95% ON ROOM AIR. OCCASIONAL UPPER RESPIRATORY WHEEZE HEARD. PLAN FOR VQ LUNG SCAN LATER THIS AFTERNOON. CHILDREN AT BEDSIDE FOR PROVIDOR ROUNDING. ACHS BLOOD SUGAR CHECKS. CALL LIGHT IN REACH. FAMILY REMAINS AT BEDSIDE.
--- NOTE | 2022-10-14 10:32 | NUR ---
Spiritual care visit conducted. Patient is lying in bed and alert. The room is full with family members who have come from out of town to support the patient. They tell me a little bit about where they are from and what is important to them about their mother. Patient states that she feels much better this morning and is thankful for all the work the medical staff has done to care for her needs. I provide therapeutic listening and prayer. Family becomes tearful at the prayer and voice that their hearts were moved by the words. They express gratitude and exhibit evidence being comforted.
--- NOTE | 2022-10-14 11:33 | NUR ---
STAT EKG COMPLETED PER DR. DE LA CRUZ AND PLACED IN CHART. FAMILY REMAINS AT BEDSIDE. AFTERNOON VITALS STABLE. PATIENT REFUSING HIPS TO BE FLOATED. CLEMENTS CATH CONTINUES TO DRAIN.
--- NOTE | 2022-10-14 11:50 | NUR ---
DR. DE LA CRUZ BY TO REVIEW EKG. FAMILY AT BEDSIDE FOR PROVIDER VISIT. NO NEW ORDERS FOR THIS RN TO PLACE.
--- NOTE | 2022-10-14 16:13 | NUR ---
VQ LUNG SCAN COMPLETED, WAITING FOR RESULTS. DR. CASAREZ UPDATED ON TOTAL OUTPUT OF CLEMENTS SO FAR THIS SHIFT 1,800ML, STABLE BLOOD SUGARS, DIETARY CONSULT, AND VQ LUNG SCAN BEING COMPLETED. ORDER FOR THIS RN TO PLACE: DC ACHS BLOOD SUGAR CHECKS. ORDER DISCONTINUED. PATIENT EVENING VITALS STABLE. SLEEPING AT THIS TIME.
--- NOTE | 2022-10-14 17:43 | NUR ---
SHIFT SUMMARY: PATIENT REMAINS ALERT AND ORIENTED. ON ROOM AIR SATING MID-HIGH 90'S. TELE CONTINUES TO SHOW SR WITH PVC'S HR 60-70'S. DENIES CHEST PAIN/PRESSURE. PO AMIO GIVEN PER DR. DE LA CRUZ ORDERS. PLAN FOR EKG TOMORROW AM AT 0500. DENIES ABDOMINAL PAIN/NAUSEA THIS SHIFT. CLEMENTS OUTPUT 1,800ML. CONTINUES TO HAVE LOOSE STOOL, USING BEDPAN. STOOL SOFTNER HELD THIS AM. FAMILY AT BEDSIDE WHILE PATIENT IS EATING DINNER. SEE PREVIOUS NOTES FOR FURTHER UPDATES. CALL LIGHT IN REACH.
--- NOTE | 2022-10-14 19:55 | NUR ---
ASSESSMENT/ASSUMED CARE PT SITTING UP IN BED RESTING QUIELTY. PT STATES,"I'M FEELING MUCH BETTER, JUST TIRED". DENIES PAIN OR DISCOMFORT. VSS. HS MEDS GIVEN. LUNGS CLEAR BUT DECREASED IN THE BASES ON ROOMAIR. RESP EVEN AND NONLABORED. DENIES SOB OR COUGH. HEART RATE REGULAR IN THE 60-70'S. BP SLIGHTLY HYPOTENSIVE BUT MAP GREATER THAN 65. 1+ BILAT PEDAL EDEMA NOTED. BT+ ABD SOFT AND NONTENDER. DENIES N/V. IV POWER GLIDE TO RIGHT UPPER ARM SALINE LOCKED. ABLE TO PULL BLOOD AND FLUSH WITHOUT DIFFICULTY. IV RIGHT WRIST SALINE LOCKED, ABLE TO FLUSH WITHOUT DIFFICULTY. CLEMENTS CATH PATENT DRAINING CLEAR YELLOW URINE.
[2022-10-15 03:48] VITALS: BP 98/53
[2022-10-15 04:18] LABS: Hematocrit 32.6 % (33.0-51.0); Hemoglobin 11.5 g/dL (11.5-16.0)
--- NOTE | 2022-10-15 05:43 | NUR ---
SHIFT SUMMARY PT RESTED DURING THE NIGHT. IMPROVED URINE OUTPUT 1800 ML FOR NIGHT. VSS. PT ASSISTING WITH TURNING. DENIES PAIN OR DISCOMFORT. HEART RATE IN THE 60'S MOST OF THE NIGHT WITH HEART RATE UP TO 100'S AT TIMES. BP STABLE. REPORT TO ON COMING NURSE
[2022-10-15 06:54] LABS: Alanine Aminotransfer (ALT/SGP 89 U/L (12-78); Albumin, Blood 2.4 g/dL (3.4-5.0); Anion Gap 7 mmol/L (6-16); Aspartate Aminotrans (AST/SGOT 42 U/L (12-37); Blood Urea Nitrogen 42 mg/dL (8-24); Bun/Creatinine Ratio 21.8 (12.0-20.0); CO2, Blood 26 mmol/L (21-32); Calcium, Blood 7.7 mg/dL (8.5-10.1); Chloride, Blood 105 mmol/L (98-108); Creatinine, Blood 1.93 mg/dL (0.40-1.00); Glomerular Filtration Rate 25 (60-); Glucose, Blood 86 mg/dL (70-99); Magnesium, Blood 1.6 mg/dL (1.6-2.4); Phosphorus, Blood 3.1 mg/dL (2.5-4.9); Potassium, Blood 3.1 mmol/L (3.5-5.5); Sodium, Blood 138 mmol/L (136-145)
[2022-10-15 07:41] VITALS: BP 123/58
--- NOTE | 2022-10-15 07:45 | NUR ---
I CALLED DR. LAWSON THAT THE PT'S AM LABS WERE IN PER HIS REQUEST.
[2022-10-15 12:14] VITALS: BP 115/77
[2022-10-15 15:53] VITALS: BP 127/72
--- NOTE | 2022-10-15 16:46 | NUR ---
SHIFT SUMMARY PT IS A&OX4, 1P SBA FOR TX, AND CAN MAKE HER NEEDS KNOWN. SHE HAS HAD MANY VISITORS TODAY AND THEY WERE UPDATED ON HER CARE PER HER REQUEST. ON TELE PT HAS BEEN SR W/ PACS, PVCS, BBB, AND PROLONGED QTC 60'S-70'S. SHE DENIES ANY AOB AND HAS BEEN ON RA WITH SPO2>95%. SHE WORKED WITH PT TODAY, WAS UP IN THE CHAIR FOR HALF OF THE DAY, AND SHE WAS GIVEN A BEDBATH. THE PT IS VERY "WORN OUT" AND REFUSED WORKING WITH OT. SHE HAS HAD NO ACUTE EVENTS. FAMILY AND PT EDUCATED ON FIRE IGNITION RISKS AND SAFETY.
[2022-10-15 19:54] VITALS: BP 110/70
[2022-10-16 00:35] VITALS: BP 117/63
[2022-10-16 04:48] VITALS: BP 119/67
--- NOTE | 2022-10-16 04:56 | NUR ---
SHIFT SUMMARY NO ACUTE CHANGES OVERNIGHT. PT CONTINUES TO DENY CHEST PAIN/PRESSURE THROUGHOUT THIS SHIFT. VITALS STABLE. CONTINUES TO BE IN SR WITH BBB, OCCASIONAL PAC'S/PVC'S. A&O. ABLE TO MAKE NEEDS KNOWN. EKG TO BE PERFORMED THIS AM, BEFORE SHIFT ENDS. BED IN LOWEST POSITION AND CALL LIGHT WITHIN REACH. THIS RN WILL CONTINUE TO MONITOR UNTIL SHIFT CHANGE AT 0700.
[2022-10-16 06:08] LABS: BASOPHILS ABSOLUTE AUTO 0.02 K/mm3 (0.00-0.23); BASOPHILS PERCENT AUTO 0 % (0-2); EOSINOPHILS ABSOLUTE AUTO 0.12 K/mm3 (0.00-0.68); EOSINOPHILS PERCENT AUTO 2 % (0-6); Hematocrit 36.6 % (33.0-51.0); Hemoglobin 12.6 g/dL (11.5-16.0); IMMATURE GRAN ABSOLUTE AUTO 0.01 K/mm3 (0.00-0.10); IMMATURE GRAN PERCENT AUTO 0 % (0-1); LYMPHOCYTES ABSOLUTE AUTO 1.77 K/mm3 (0.84-5.20); LYMPHOCYTES PERCENT AUTO 22 % (21-46); MONOCYTES ABSOLUTE AUTO 0.92 K/mm3 (0.16-1.47); MONOCYTES PERCENT AUTO 12 % (4-13); Mean Corpuscular HGB 32.5 pg (26.0-34.0); Mean Corpuscular HGB Conc 34.4 g/dL (31.5-36.5); Mean Corpuscular Volume 94 fL (80-100); Mean Platelet Volume 10.9 fL (9.1-12.4); NEUTROPHILS ABSOLUTE AUTO 5.07 K/mm3 (1.96-9.15); NEUTROPHILS PERCENT AUTO 64 % (41-73); Platelet Count 174 K/mm3 (150-400); RDW Coefficient Variation 15.1 % (11.7-14.2); RDW Standard Deviation 48.6 fL (35.1-46.3); Red Blood Cell Count 3.88 M/mm3 (3.80-5.20); White Blood Cell Count 7.91 K/mm3 (4.00-11.30)
[2022-10-16 06:24] LABS: Alanine Aminotransfer (ALT/SGP 78 U/L (12-78); Albumin, Blood 2.4 g/dL (3.4-5.0); Anion Gap 5 mmol/L (6-16); Aspartate Aminotrans (AST/SGOT 44 U/L (12-37); Blood Urea Nitrogen 30 mg/dL (8-24); CO2, Blood 30 mmol/L (21-32); Calcium, Blood 7.9 mg/dL (8.5-10.1); Chloride, Blood 106 mmol/L (98-108); Creatinine, Blood 1.43 mg/dL (0.40-1.00); Glomerular Filtration Rate 36 (60-); Glucose, Blood 98 mg/dL (70-99); Magnesium, Blood 1.6 mg/dL (1.6-2.4); Phosphorus, Blood 2.7 mg/dL (2.5-4.9); Potassium, Blood 3.5 mmol/L (3.5-5.5); Sodium, Blood 141 mmol/L (136-145)
[2022-10-16 07:36] VITALS: BP 129/76
[2022-10-16 11:50] VITALS: BP 135/75
[2022-10-16 15:04] VITALS: BP 126/73
--- NOTE | 2022-10-16 18:18 | NUR ---
SHIFT SUMMARY PT IS A&OX4, SBA W/ FWW, AND CALLS APPROPRAITELY. SHE WORKED WITH PT TODAY AND HAS BEEN UP IN THE CHAIR THIS AFTERNOON. PT DENIES ANY ANGINA OR CHEST PRESSURE. ON TELE SHE HAS BEEN SR W/ PAC'S, PVC'S, BBB, AND PROLONGED QTC. BP STABLE. SHE IS ON RA AND SP02>93%, SHE DENIES ANY SOB. NO ACUTE EVENTS, BUT DR. GREER DID CHANGED HER TO MEDICAL STATUS W/ TELE. PT AND FAMILY EDUCATED ON FIRE IGNITION RISK AND SAFETY.
[2022-10-16 20:51] VITALS: BP 119/65
[2022-10-17] VITALS (9 sets, daily range): BP systolic 87–135; BP diastolic 30–78
[2022-10-17 04:03] LABS: BASOPHILS ABSOLUTE AUTO 0.03 K/mm3 (0.00-0.23); BASOPHILS PERCENT AUTO 0 % (0-2); EOSINOPHILS PERCENT AUTO 4 % (0-6); Hematocrit 39.3 % (33.0-51.0); Hemoglobin 13.3 g/dL (11.5-16.0); IMMATURE GRAN ABSOLUTE AUTO 0.02 K/mm3 (0.00-0.10); IMMATURE GRAN PERCENT AUTO 0 % (0-1); LYMPHOCYTES ABSOLUTE AUTO 1.95 K/mm3 (0.84-5.20); LYMPHOCYTES PERCENT AUTO 26 % (21-46); MONOCYTES ABSOLUTE AUTO 0.86 K/mm3 (0.16-1.47); MONOCYTES PERCENT AUTO 11 % (4-13); Mean Corpuscular HGB 32.1 pg (26.0-34.0); Mean Corpuscular HGB Conc 33.8 g/dL (31.5-36.5); Mean Corpuscular Volume 95 fL (80-100); Mean Platelet Volume 10.5 fL (9.1-12.4); NEUTROPHILS ABSOLUTE AUTO 4.41 K/mm3 (1.96-9.15); NEUTROPHILS PERCENT AUTO 58 % (41-73); Platelet Count 185 K/mm3 (150-400); RDW Standard Deviation 50.1 fL (35.1-46.3); Red Blood Cell Count 4.14 M/mm3 (3.80-5.20); White Blood Cell Count 7.57 K/mm3 (4.00-11.30)
[2022-10-17 04:19] LABS: Albumin, Blood 2.5 g/dL (3.4-5.0); Anion Gap 4 mmol/L (6-16); Blood Urea Nitrogen 28 mg/dL (8-24); Bun/Creatinine Ratio 21.9 (12.0-20.0); CO2, Blood 37 mmol/L (21-32); Calcium, Blood 7.9 mg/dL (8.5-10.1); Chloride, Blood 100 mmol/L (98-108); Creatinine, Blood 1.28 mg/dL (0.40-1.00); Glomerular Filtration Rate 41 (60-); Glucose, Blood 101 mg/dL (70-99); Magnesium, Blood 1.3 mg/dL (1.6-2.4); Potassium, Blood 3.4 mmol/L (3.5-5.5); Sodium, Blood 141 mmol/L (136-145)
--- NOTE | 2022-10-17 06:33 | NUR ---
SHIFT SUMMARY NO ACUTE CHANGES OVERNIGHT. VITALS REMAIN STABLE. SR BBB WTIH PAC'S/PVC'S. DENIES CHEST PAIN/PRESSURE. MG 1.3 THIS AM; CALL PLACED TO MD HICKMAN; ORDER TO REPLENISH, SEE EMAR. PT SLEPT IN RECLINER DURING THIS SHIFT PER REQUEST OF PT. CLEMENTS CATHETER DRAINING TO GRAVITY. BED IN LOWEST POSITION AND CALL LIGHT WITHIN REACH. THIS RN WILL CONTINUE TO MONITOR UNTIL SHIFT CHANGE AT 0700.
--- NOTE | 2022-10-17 14:33 | NUR ---
DR. LAWSON CALLED AND SET PARAMETERS FOR THE BUMEX DUE TO HYPOTENSION THIS AM. HE SWITCHED THE PT TO ORAL BUMEX STARTING TOMORROW AND WANTED US TO BLADDER TRAIN AND D/C THE CLEMENTS. PT AND FAMILY UPDATED.
--- NOTE | 2022-10-17 17:53 | NUR ---
SHIFT SUMMARY PT IS A&OX4, SBA W/ FWW FOR TX, AND CALLS APPROPRAITELY. SHE HAD A BED BATH TODAY AND HER CLEMENTS WAS D/C'D. SHE IS ABLE TO URINATE ON HER OWN WITHOUT INC. SHE HAS NOT HAD A BOWEL MOVEMENT IN TWO DAYS, AND DECIDED SHE WOULD TRY HER STOOL SOFTENER TODAY. DR. GREER CAME TO BEDSIDE AND STATED WE WILL MAKE SOME MEDICATION CHANGES TOMORROW AND HOPEFULLY DISCHARGE HER 10/19. PT HAS NO COMPLAINTS, AND ON TELE SHE IS SR 60'S-80'S W/ BBB, PVC, PAC, AND PRONLONGED QTC. FAMILY HAS BEEN INVOLVED AND UPDATED ON HER CARE. NO ACUTE EVENTS. PT AND FAMILY EDUCATED ON FIRE IGNITION RISK AND SAFETY. DNR BAND IS ON THE PT'S LEFT WRIST. DNR BAND ON THE DOOR.
[2022-10-18 04:00] VITALS: BP 123/66
[2022-10-18 04:35] LABS: BASOPHILS ABSOLUTE AUTO 0.02 K/mm3 (0.00-0.23); BASOPHILS PERCENT AUTO 0 % (0-2); EOSINOPHILS ABSOLUTE AUTO 0.44 K/mm3 (0.00-0.68); EOSINOPHILS PERCENT AUTO 6 % (0-6); Hematocrit 39.2 % (33.0-51.0); Hemoglobin 13.4 g/dL (11.5-16.0); IMMATURE GRAN ABSOLUTE AUTO 0.02 K/mm3 (0.00-0.10); IMMATURE GRAN PERCENT AUTO 0 % (0-1); LYMPHOCYTES ABSOLUTE AUTO 1.63 K/mm3 (0.84-5.20); LYMPHOCYTES PERCENT AUTO 24 % (21-46); MONOCYTES ABSOLUTE AUTO 0.96 K/mm3 (0.16-1.47); MONOCYTES PERCENT AUTO 14 % (4-13); Mean Corpuscular HGB 32.5 pg (26.0-34.0); Mean Corpuscular HGB Conc 34.2 g/dL (31.5-36.5); Mean Corpuscular Volume 95 fL (80-100); Mean Platelet Volume 10.4 fL (9.1-12.4); NEUTROPHILS ABSOLUTE AUTO 3.78 K/mm3 (1.96-9.15); NEUTROPHILS PERCENT AUTO 55 % (41-73); Platelet Count 176 K/mm3 (150-400); RDW Coefficient Variation 14.8 % (11.7-14.2); RDW Standard Deviation 49.5 fL (35.1-46.3); Red Blood Cell Count 4.12 M/mm3 (3.80-5.20); White Blood Cell Count 6.85 K/mm3 (4.00-11.30)
[2022-10-18 04:50] LABS: Albumin, Blood 2.5 g/dL (3.4-5.0); Anion Gap 5 mmol/L (6-16); Blood Urea Nitrogen 23 mg/dL (8-24); Bun/Creatinine Ratio 18.5 (12.0-20.0); CO2, Blood 38 mmol/L (21-32); Calcium, Blood 8.3 mg/dL (8.5-10.1); Chloride, Blood 96 mmol/L (98-108); Creatinine, Blood 1.24 mg/dL (0.40-1.00); Glomerular Filtration Rate 42 (60-); Glucose, Blood 104 mg/dL (70-99); Magnesium, Blood 1.5 mg/dL (1.6-2.4); Phosphorus, Blood 3.1 mg/dL (2.5-4.9); Potassium, Blood 3.3 mmol/L (3.5-5.5); Sodium, Blood 139 mmol/L (136-145)
--- NOTE | 2022-10-18 05:28 | NUR ---
SHIFT SUMMARY PT REMAINS A&O X4. VSS. NO OVERNIGHT EVENTS. PT SLEPT WELL T/O SHIFT. PT SLETP IN RECLINER ALL NIGHT. PT UP TO USE BSC A FEW TIMES W/MINIMAL ASSITANCE; TOLERATED WELL. PT INTAKE OF 300 MLS OF WATER/ICE CHIPS THIS SHIFT. DENIES SOB, DENIES N/V. DENIES DIZZINESS WHEN AMBULATING AND DENIES CP OR PRESSURE. WILL UPDATE ONCOMING RN AM LABS SHOWED LOW K+ AND LOW MAGNESIUM. NEW ORDERS FOR ONE TIME DOSE OF 20 MEQ POTASSIUM PO AND 1 GRAM IV MAGNESIUM W/FOLLOW UP LABS TOMORROW AM.
[2022-10-18 08:27] VITALS: BP 105/58
[2022-10-18 12:36] VITALS: BP 129/72
[2022-10-18] MEDS ORDERED: ACET325 PO (16:19)
[2022-10-18] MEDS ORDERED: Amiodarone HCl200 MG PO (16:20)
[2022-10-18] MEDS ORDERED: ATOR40TA PO (16:21)
[2022-10-18] MEDS ORDERED: BUME2 PO (16:22)
[2022-10-18] MEDS ORDERED: DOCU100 PO (16:23)
[2022-10-18] MEDS ORDERED: METO25ER PO (16:23)
[2022-10-18] MEDS ORDERED: MICONAZOLE NITR85 GM TOP (16:24)
--- NOTE | 2022-10-18 17:11 | NUR ---
DISCHARGE SUMMARY ALERT, ORIENTED, COOPERATIVE. SBA WITH FWW. TOLERATING RENAL DIET AND FLUID RESTRICTION. VSS. WORKED WELL WITH OCCUPATIONAL THERAPY. DISCHARGE ORDERS GIVEN BY DR MEREDITH. DISCHARGE EDUCATION GIVEN ON NEW MEDS AND FOLLOW UP WITH PCP. CHANDA'Sandra MOORE'Annetta WNL. PATIENT LEFT UNIT AT 1650 VIA WHEELCHAIR FOR HOME WITH FAMILY.
== END 2022-10-18 16:57 | disposition home or self-care (01) | DRG 291 ==
LOC: ER 08:42 → PCU 12:24
PROVIDERS: Family Medicine; Family Medicine Adult Medicine; Hospitalist; Internal Medicine; Internal Medicine Nephrology; ADMIT Hospitalist
PROC: 0T9B70Z Drainage of Bladder with Drainage Device, Via Natural or Artificial Opening (ICD-10-PCS; principal; 2022-10-12)
DX: I13.0 Hypertensive heart and chronic kidney disease with heart failure and stage 1 through stage 4 chronic kidney disease, or unspecified chronic kidney disease (principal); G92.8 Other toxic encephalopathy; I50.21 Acute systolic (congestive) heart failure; J18.9 Pneumonia, unspecified organism; I50.32 Chronic diastolic (congestive) heart failure; N39.0 Urinary tract infection, site not specified; E87.1 Hypo-osmolality and hyponatremia; N17.9 Acute kidney failure, unspecified; E87.20 Acidosis, unspecified; I48.0 Paroxysmal atrial fibrillation; Z66 Do not resuscitate; E87.6 Hypokalemia; E83.42 Hypomagnesemia; I44.7 Left bundle-branch block, unspecified; R41.3 Other amnesia; R47.81 Slurred speech; I95.9 Hypotension, unspecified; G89.29 Other chronic pain; M25.511 Pain in right shoulder; M25.552 Pain in left hip; E78.5 Hyperlipidemia, unspecified; N18.31 Chronic kidney disease, stage 3a; D63.1 Anemia in chronic kidney disease; I25.2 Old myocardial infarction; Z88.0 Allergy status to penicillin; Z88.5 Allergy status to narcotic agent; Z79.82 Long term (current) use of aspirin; Z79.899 Other long term (current) drug therapy; Z90.89 Acquired absence of other organs; Z90.710 Acquired absence of both cervix and uterus; Z98.890 Other specified postprocedural states; Z85.3 Personal history of malignant neoplasm of breast; Z86.73 Personal history of transient ischemic attack (TIA), and cerebral infarction without residual deficits; Z98.49 Cataract extraction status, unspecified eye
CPT/HCPCS: 36415; 70450; 70551; 71045; 76770; 78582; 80048; 80053; 80069; 81001; 82436; 82947; 83690; 83735; 83880; 84100; 84156; 84300; 84439; 84443; 84450; 84460; 84481; 84484; 85014; 85018; 85025; 85610; 87077; 87086; 87186; 87507; 92526; 92610; 93005; 93010; 93306; 93970; 94640; 94664; 94760; 94762; 96365; 96366; 96376; 97110; 97162; 97166; 97530; 97535; 99285-25; A9270; A9540; C9113; J1650; J1940; J1956; J2405; J3475; J3480; J7030; J7040; J7070

== ENCOUNTER → 2022-12-26 | Outpatient (CLI) | payer MEDICARE ==
[~2022-12-26] MED LIST changes: +ACET325 PO; +ATOR40TA PO; +Amiodarone HCl200 MG PO; +BUME2 PO; +DOCU100 PO; +FURO20 PO; +MICONAZOLE NITR85 GM TOP; +POTA10T PO
[2022-12-27 14:37] LABS: Creatinine Urine 30.2 mg/dL (27.00-270.00); Microalbumin, Urine Quant. 5.92 mg/L (0.000-20.000); Protein, Urine Quantitative 5.7 mg/dL (0.0-11.9)
== END | disposition home or self-care (01) ==
LOC: LAB 11:55 → LAB SHORT 11:55
PROVIDERS: Internal Medicine Nephrology
DX: N18.30 Chronic kidney disease, stage 3 unspecified (principal); D63.1 Anemia in chronic kidney disease; N25.81 Secondary hyperparathyroidism of renal origin; E55.9 Vitamin D deficiency, unspecified; E78.00 Pure hypercholesterolemia, unspecified; D51.8 Other vitamin B12 deficiency anemias; D52.8 Other folate deficiency anemias; R76.9 Abnormal immunological finding in serum, unspecified; R94.5 Abnormal results of liver function studies; R94.6 Abnormal results of thyroid function studies
CPT/HCPCS: 81050; 82043; 82570; 84156

== ENCOUNTER → 2023-02-16 | Outpatient (CLI) | payer MEDICARE ==
[2023-02-20 21:18] LABS: ALBUMIN %,URINE 97.1 %; ALPHA-1 %,URINE 1.2 %; BETA GLOBULIN %,URINE 1.7 %; HOURS COLLECTED Random hr; TOTAL PROTEIN,URINE-PER VOLUME 7 mg/dL; TOTAL VOLUME Random mL
== END ==
LOC: LAB SHORT 08:00 → LAB 08:00
PROVIDERS: Internal Medicine Nephrology
DX: N18.30 Chronic kidney disease, stage 3 unspecified (principal); N25.81 Secondary hyperparathyroidism of renal origin; E78.00 Pure hypercholesterolemia, unspecified; R78.9 Finding of unspecified substance, not normally found in blood; R94.5 Abnormal results of liver function studies; R94.6 Abnormal results of thyroid function studies; D51.8 Other vitamin B12 deficiency anemias; E55.9 Vitamin D deficiency, unspecified; D52.8 Other folate deficiency anemias; D50.9 Iron deficiency anemia, unspecified
CPT/HCPCS: 84156; 84166; 86335

== ENCOUNTER 2023-11-24 11:20 | Observation (INO) | payer MEDICARE ==
[~2023-11-24] VITALS: Ht 167.6 cm; Wt 72.0 kg
[2023-11-24 12:33] LABS: BASOPHILS ABSOLUTE AUTO 0.03 K/mm3 (0.00-0.23); BASOPHILS PERCENT AUTO 1 % (0-2); EOSINOPHILS ABSOLUTE AUTO 0.36 K/mm3 (0.00-0.68); EOSINOPHILS PERCENT AUTO 6 % (0-6); Hematocrit 37.2 % (33.0-51.0); Hemoglobin 12.1 g/dL (11.5-16.0); IMMATURE GRAN ABSOLUTE AUTO 0.02 K/mm3 (0.00-0.10); IMMATURE GRAN PERCENT AUTO 0 % (0-1); LYMPHOCYTES ABSOLUTE AUTO 1.24 K/mm3 (0.84-5.20); LYMPHOCYTES PERCENT AUTO 19 % (21-46); MONOCYTES ABSOLUTE AUTO 0.55 K/mm3 (0.16-1.47); MONOCYTES PERCENT AUTO 8 % (4-13); Mean Corpuscular HGB 32.7 pg (26.0-34.0); Mean Corpuscular HGB Conc 32.5 g/dL (31.5-36.5); Mean Corpuscular Volume 101 fL (80-100); Mean Platelet Volume 10.9 fL (9.1-12.4); NEUTROPHILS PERCENT AUTO 67 % (41-73); Platelet Count 178 K/mm3 (150-400); RDW Coefficient Variation 14.1 % (11.7-14.2); RDW Standard Deviation 52.2 fL (35.1-46.3)
[2023-11-24 13:00] LABS: Albumin, Blood 2.8 g/dL (3.4-5.0); Albumin/Globulin Ratio 0.8 (0.8-1.8); Bilirubin, Total 1.4 mg/dL (0.1-1.0); Bun/Creatinine Ratio 17.6 (12.0-20.0); Calcium, Blood 8.4 mg/dL (8.5-10.1); Creatinine, Blood 1.53 mg/dL (0.40-1.00); Globulin, Blood 3.5 g/dL (2.2-4.0); Potassium, Blood 3.7 mmol/L (3.5-5.5); Total Protein, Blood 6.3 g/dL (6.4-8.2)
[2023-11-24] MEDS ORDERED: Furosemide 10 MG / ML 2ML Vial IV ONE (14:40)
[2023-11-24] MEDS ORDERED: Bumetanide 0.25 MG/ML 10ML Vial IV ONE (14:40)
[2023-11-24 16:56] LABS: International Normalized Ratio 1.12; Prothrombin Time Results 11.9 Sec (9.7-11.5)
[2023-11-24] MEDS ORDERED: CALC.25 PO (17:57)
[2023-11-24] MEDS ORDERED: ELIQUIS2.5 MG PO (17:57)
[2023-11-24] MEDS ORDERED: LEVSOD75 PO (17:58)
[2023-11-24] MEDS ORDERED: ENTRESTO 24 MG1 EACH PO (17:58)
[2023-11-24] MEDS ORDERED: POTA10T PO (17:59)
[2023-11-24] MEDS ORDERED: METO25ER (17:59)
[2023-11-24] MEDS ORDERED: Acetaminophen 325 MG TABLET PO PRN (18:25)
[2023-11-24] MEDS ORDERED: FLU VACC TS2024-25(6MOS UP)/PF 45 MCG/0.5 ML SYRINGE IM SCH (18:25)
[2023-11-24] MEDS ORDERED: Ondansetron HCl 2 MG / ML 2ML Vial IV PRN (18:25)
[2023-11-24] MEDS ORDERED: Atorvastatin 10 MG Tab PO SCH (21:00)
[2023-11-24 21:16] VITALS: BP 112/57
--- NOTE | 2023-11-25 01:56 | NUR ---
ADMIT NOTE 88 YR OLD FEMALE ADMITTED TO THE FLOOR FROM THE ED WITH DX OF COVID POSITIVE AND ELEVATED TROPONINS, (SEE LABS IN CHART FOR DETAILS). ALERT AND ORIENTED. COOPERATIVE WITH CARE. ED RN REPORTED PT HAD BEEN FEELING SOB FOR 2 WKS BEFORE SHE CAME IN. ORIENTED TO USE OF CALL LIGHT. UP AD HERO WITH ASSIST. CT DONE - SHOWED LEFT PLEURAL EFFUSION. NPO AT 2400 FOR STRESS TEST IN THE AM. ON ISOLATION PRECAUTIONS FOR COVID. WILL CONT TO MONITOR
--- NOTE | 2023-11-25 03:19 | NUR ---
SHUTTLER CAR SUMMARY VSS. ADMITTED TO FLOOR THIS SHIFT EARLIER FROM THE ED WITH DX OF COVID POSITIVE AND ELEVATED TROPS. NPO SINCE MIDNIGHT FOR STRESS TEST IN THE AM. ALERT AND ORIENTED. COOPERATIVE AND PLEASANT. ISOLATION MAINTAINED FOR COVID. HAS BEEN RESTING QUIETLY WITH FEW INTERRUPTIONS. ABLE TO RESPOSITION SELF WITHOUT ASSIST. CALL LIGHT IN REACH, RAILS UP X 2 AND BE IN LOW POSITION FOR SAFETY. WILL COT TO MONITOR.
[2023-11-25 04:27] VITALS: BP 113/48
[2023-11-25 05:05] LABS: Hematocrit 34.9 % (33.0-51.0); Hemoglobin 11.6 g/dL (11.5-16.0); Mean Corpuscular HGB 32.8 pg (26.0-34.0); Mean Corpuscular HGB Conc 33.2 g/dL (31.5-36.5); Mean Corpuscular Volume 99 fL (80-100); Mean Platelet Volume 11.4 fL (9.1-12.4); Platelet Count 197 K/mm3 (150-400); RDW Coefficient Variation 14.1 % (11.7-14.2); RDW Standard Deviation 51.1 fL (35.1-46.3); Red Blood Cell Count 3.54 M/mm3 (3.80-5.20); White Blood Cell Count 6.73 K/mm3 (4.00-11.30)
[2023-11-25 05:36] LABS: Bun/Creatinine Ratio 17.5 (12.0-20.0); Calcium, Blood 8.2 mg/dL (8.5-10.1); Creatinine, Blood 1.54 mg/dL (0.40-1.00); Potassium, Blood 3.4 mmol/L (3.5-5.5)
[2023-11-25 08:09] VITALS: BP 116/75
[2023-11-25] MEDS ORDERED: Amiodarone HCl 200 MG Tab PO SCH (09:00)
[2023-11-25] MEDS ORDERED: Aspirin 81 MG TabEC PO SCH (09:00)
[2023-11-25] MEDS ORDERED: Bumetanide 1 MG Tab PO SCH (09:00)
[2023-11-25] MEDS ORDERED: Atorvastatin 40 MG Tab PO SCH (09:00)
[2023-11-25] MEDS ORDERED: Metoprolol Succinate 25 MG TABCR PO SCH (09:00)
[2023-11-25] MEDS ORDERED: Potassium Chloride 10 Meq Tablet SA PO SCH (09:00)
--- NOTE | 2023-11-25 13:05 | NUR ---
NOTE PT ON TELE. PT DID NOT RECIEVE AMIODRONE AND METOPROLOL THIS AM DUE TO STRESS TEST. TELE CALLED TO NOTIFY ABOUT A PROLONG QT INTERVAL OF .5. TELE REPORTED A INCREASE IN EPISODE FROM THIS AM. PT DOESN'T REPORT OF ANY CHEST PAIN OR DISCOMFORT. NOTIFIED DR. NUNEZ OF TELE REPORT. NO NEW ORDERS.
[2023-11-25] MEDS ORDERED: Regadenoson 0.4 MG/5 ML SYRINGE ONE (13:09)
[2023-11-25 15:34] VITALS: BP 109/54
--- NOTE | 2023-11-25 18:12 | NUR ---
SHIFT SUMMARY PT A&OX4. PT ADMITTED DUE TO COVID AND ELEVATED TROP. PT HAS STRESS TEST TODAY. PT WAS CLEARED TO DISCHARGE IF PT DOES NOT SHOW SIGNS OF HYPOXIA. PT AMBULATED TO TOILET DURING SHIFT AND HER O2 SATS WENT DOWN TO 88%-92%. PER DISCHARGE CRITERIA DR. NUNEZ REQUESTED HER O2 LEVELS STAY AT 89% WHILE AMBULATING SHE CAN DISCHARGE. AMBULATED PT DOWN POST WHILE ON ROOM AIR, PT NOTES GENERAL BLE WEAKNESS DUE TO NOT HAVING HER BASELINE ACTIVITY. PT O2 SATS WENT DOWN TO 93% ON AMBULATION. PT REPORTED NO SOB OR CHEST DISCOMFORT. NOTIFIED DR. NUNEZ OF RESULTS. PT ON ROOM AIR. PT ABLE TO AMBULATE TO TOILET. DAUGHTER AT BEDSIDE. PT ABLE TO MAKE NEEDS KNOWN, DAUGHTER AT BEDSIDE. CALL LIGHT IN REACH.
[2023-11-25] MEDS ORDERED: DECADRON6 M1 PO (18:42)
--- NOTE | 2023-11-25 19:01 | NUR ---
DISCHARGE SUMMARY: PT DISCHARGED HOME WITH DAUGHTER. PT AND DAUGHTER EDUCATED ON DISCHARGE MEDICATIONS AND INSTRUCTIONS. SABINE KNIGHT REMOVED IV. PT ASSISTED WITH GETTING DRESSED. DAUGHTER DID NOT KNOW WHAT PHARMACY TO USE SINCE [facility] IS CLOSED TOMORROW AND TOO LATE TO GET MEDICATION TONIGHT. SENT COPY OF SCRIPTS WITH HER SO SHE CAN GET FILLED AT PHARMACY OF HER CHOICE. PT ESCORTED TO POV VIA WC BY SABINE.
[2023-11-25] MEDS ORDERED: Apixaban 5 MG Tab PO SCH (21:00)
== END 2023-11-25 19:35 | disposition home or self-care (01) ==
LOC: ER 11:20 → MEDS 11:21 → ERHOLD 11:21 → MEDS 21:05
PROVIDERS: Internal Medicine Cardiovascular Disease; Nurse Practitioner Acute Care; Physician Assistant; Student in an Organized Health Care Education/Training Program; ADMIT Family Medicine
DX: U07.1 COVID-19 (principal); I13.0 Hypertensive heart and chronic kidney disease with heart failure and stage 1 through stage 4 chronic kidney disease, or unspecified chronic kidney disease; I50.33 Acute on chronic diastolic (congestive) heart failure; N18.30 Chronic kidney disease, stage 3 unspecified; I48.91 Unspecified atrial fibrillation; I25.10 Atherosclerotic heart disease of native coronary artery without angina pectoris; I27.20 Pulmonary hypertension, unspecified; E03.9 Hypothyroidism, unspecified; Z66 Do not resuscitate; Z79.899 Other long term (current) drug therapy; Z87.891 Personal history of nicotine dependence; Z88.1 Allergy status to other antibiotic agents; Z88.5 Allergy status to narcotic agent
CPT/HCPCS: 36415; 71046; 71260; 78452; 80048; 80053; 83880; 84484; 85025; 85027; 85610; 85730; 93005; 93010; 93017; 93308; 94762; 96374; 99285-25; A9270; A9500; G0378; J2785; Q9967

== ENCOUNTER 2024-05-31 18:28 | Emergency (ER) | payer MEDICARE ==
[~2024-05-31] VITALS: Ht 167.6 cm; Wt 64.4 kg
[~2024-05-31 18:28] MED LIST changes: +CALC.25 PO; +DECADRON6 M1 PO; +ELIQUIS2.5 MG PO; +ENTRESTO 24 MG1 EACH PO; +LEVSOD75 PO; +METO25ER
[2024-05-31 19:57] LABS: BASOPHILS ABSOLUTE AUTO 0.03 K/mm3 (0.00-0.23); BASOPHILS PERCENT AUTO 0 % (0-2); EOSINOPHILS ABSOLUTE AUTO 0.26 K/mm3 (0.00-0.68); EOSINOPHILS PERCENT AUTO 4 % (0-6); Hematocrit 37.8 % (33.0-51.0); Hemoglobin 12.9 g/dL (11.5-16.0); IMMATURE GRAN ABSOLUTE AUTO 0.03 K/mm3 (0.00-0.10); IMMATURE GRAN PERCENT AUTO 0 % (0-1); LYMPHOCYTES ABSOLUTE AUTO 1.07 K/mm3 (0.84-5.20); LYMPHOCYTES PERCENT AUTO 15 % (21-46); MONOCYTES ABSOLUTE AUTO 0.62 K/mm3 (0.16-1.47); MONOCYTES PERCENT AUTO 8 % (4-13); Mean Corpuscular HGB 31.9 pg (26.0-34.0); Mean Corpuscular HGB Conc 34.1 g/dL (31.5-36.5); Mean Corpuscular Volume 94 fL (80-100); Mean Platelet Volume 9.9 fL (9.1-12.4); NEUTROPHILS ABSOLUTE AUTO 5.39 K/mm3 (1.96-9.15); NEUTROPHILS PERCENT AUTO 73 % (41-73); Platelet Count 308 K/mm3 (150-400); RDW Coefficient Variation 13.9 % (11.7-14.2); Red Blood Cell Count 4.04 M/mm3 (3.80-5.20)
[2024-05-31 20:22] LABS: Albumin, Blood 2.6 g/dL (3.4-5.0); Albumin/Globulin Ratio 0.6 (0.8-1.8); Bun/Creatinine Ratio 19.3 (12.0-20.0); Calcium, Blood 8.9 mg/dL (8.5-10.1); Creatinine, Blood 1.5 mg/dL (0.40-1.00); Globulin, Blood 4.5 g/dL (2.2-4.0); Potassium, Blood 3.5 mmol/L (3.5-5.5); Total Protein, Blood 7.1 g/dL (6.4-8.2)
[2024-05-31 22:24] LABS: Source, Urine Clean Catch
[2024-05-31 22:27] LABS: Bilirubin, Urine Neg (Neg); Blood, Urine 3+ (Neg); Glucose Qualitative, Urine Neg (Neg); Ketones, Urine Neg (Neg); Leukocyte Esterase, Urine Neg (Neg); Nitrite, Urine Neg (Neg); Protein, Urine Neg (Neg); Specific Gravity, Urine 1.005 (1.003-1.022); Urobilinogen, Urine NORM (Normal)
[2024-05-31 22:39] LABS: Appearance, Urine Clear (Clear); Color, Urine Yellow (P-Yellow)
[2024-05-31 22:42] LABS: Bacteria Not Seen /hpf; Squamous Epithelial Cells Rare /hpf (Few); White Blood Cells, Urine 0-2 /hpf (0-5)
[2024-05-31 23:24] VITALS: BP 120/60
[2024-05-31 23:31] LABS: Hematocrit 35.1 % (33.0-51.0)
[2024-06-01] MEDS ORDERED: MAGNESIUM OXID500 MG PO ×2 (10:21)
[2024-06-05] MEDS ORDERED: ONDA4 PO ×2 (09:59)
[2024-06-05] MEDS ORDERED: OMEP20ER PO ×2 (09:59)
== END 2024-06-01 00:09 | disposition home or self-care (01) ==
LOC: ER 18:28
PROVIDERS: Emergency Medicine; Student in an Organized Health Care Education/Training Program
DX: K92.1 Melena (principal); I48.91 Unspecified atrial fibrillation; I25.2 Old myocardial infarction; Z87.891 Personal history of nicotine dependence; Z86.73 Personal history of transient ischemic attack (TIA), and cerebral infarction without residual deficits; Z79.899 Other long term (current) drug therapy; Z88.5 Allergy status to narcotic agent; Z88.0 Allergy status to penicillin; Z88.1 Allergy status to other antibiotic agents; Z88.8 Allergy status to other drugs, medicaments and biological substances
CPT/HCPCS: 74177; 80053; 81001; 83690; 85014; 85018; 85025; 86850; 86900; 86901; 93005; 93010; 99285-25; Q9967

== ENCOUNTER 2024-06-01 01:16 | Observation (INO) | payer MEDICARE ==
[~2024-06-01] VITALS: Ht 167.6 cm; Wt 65.9 kg
[2024-06-01] MEDS ORDERED: Acetaminophen 325 MG TABLET PO PRN (01:55)
[2024-06-01 01:59] LABS: Hematocrit 38.4 % (33.0-51.0); Hemoglobin 12.8 g/dL (11.5-16.0)
[2024-06-01] MEDS ORDERED: Ondansetron 4 MG TAB PO PRN (02:00)
[2024-06-01] MEDS ORDERED: FLU VACC TS2024-25(6MOS UP)/PF 45 MCG/0.5 ML SYRINGE IM ONE (02:00)
[2024-06-01 03:28] VITALS: BP 113/49
[2024-06-01 07:30] VITALS: BP 110/53
[2024-06-01 07:32] LABS: Hematocrit 32.4 % (33.0-51.0); Hemoglobin 10.9 g/dL (11.5-16.0)
[2024-06-01] MEDS ORDERED: Apixaban 5 MG Tab PO SCH (09:00)
[2024-06-01] MEDS ORDERED: MAGNESIUM OXID500 MG PO (10:21)
[2024-06-01] MEDS ORDERED: NS 1,000 ML IV SCH (10:40)
[2024-06-01 12:01] LABS: Hematocrit 33.3 % (33.0-51.0); Hemoglobin 11.1 g/dL (11.5-16.0)
[2024-06-01 12:40] LABS: Magnesium, Blood 1.9 mg/dL (1.6-2.4)
[2024-06-01 12:43] LABS: Albumin, Blood 2.1 g/dL (3.4-5.0); Albumin/Globulin Ratio 0.6 (0.8-1.8); Bilirubin, Total 0.8 mg/dL (0.1-1.0); Bun/Creatinine Ratio 19.2 (12.0-20.0); Calcium, Blood 8.5 mg/dL (8.5-10.1); Creatinine, Blood 1.51 mg/dL (0.40-1.00); Globulin, Blood 3.8 g/dL (2.2-4.0); Phosphorus, Blood 2.4 mg/dL (2.5-4.9); Potassium, Blood 3.1 mmol/L (3.5-5.5); Total Protein, Blood 5.9 g/dL (6.4-8.2)
[2024-06-01] MEDS ORDERED: Potassium Chl 20MEQ/Water100ML 100 ML IV STA (12:53)
[2024-06-01 13:33] LABS: Hemoglobin 11.7 g/dL (11.5-16.0)
[2024-06-01] MEDS ORDERED: Potassium Chloride 10 Meq Tablet SA PO ONE (14:40)
[2024-06-01 16:58] VITALS: BP 108/51
[2024-06-01 18:34] LABS: Hematocrit 32.4 % (33.0-51.0); Hemoglobin 10.9 g/dL (11.5-16.0)
--- NOTE | 2024-06-01 19:07 | NUR ---
SHIFT SUMMARY: NO EVENTS OR CHANGES WITH THE PATIENT THROUGHOUT THE SHIFT. NO BLOOD STOOLS THIS SHIFT. SHE IS ON CLEARS, GETTING NS AT 50ML/HR. SHE WAS CONSULTED BY DR. CALDERA. CALL LIGHT WITHIN REACH, FAMILY AT BEDSIDE, NO SIGNS OR SYMPTOMS OF DISTRESS, PLAN OF CARE ONGOING. PLAN IS FOR AN UPPER AND LOWER SCOPE IN THE MORNING; AWAITING ORDERS FROM WERNER.
[2024-06-01 19:25] VITALS: BP 110/49
[2024-06-01] MEDS ORDERED: Sodium, Potassium,Mag Sulfates 354 ML PO ONE (19:55)
[2024-06-01] MEDS ORDERED: Sacubitril/Valsartan 24 MG-26 MG Tab PO SCH (21:00)
[2024-06-02 00:03] LABS: Hematocrit 32.7 % (33.0-51.0); Hemoglobin 11.2 g/dL (11.5-16.0)
--- NOTE | 2024-06-02 02:59 | NUR ---
SHIFT SUMMARY PT WAS STARTED ON BOWEL PREP ORDERED @HS. TOLERATING WELL. NO BM'S OF 0300. PT USING BEDSIDE COMMODE WITH SBA. PT DENIES PAIN AND DISCOMFORT. PULLUPS IN PLACE. NS INFUSING @50MLS/HR ORDERED. PT IS A/O X4, PLEASANT AND COOPERATIVE WITH CARE. @HS PT'S SON'S BY THE BEDSIDE. PLAN IS FOR COLONOSCOPY AND UPPER ENDOSCOPY TODAY PER . NPO @0600 THIS AM. NO PO INTAKE T/O THE NIGHT, EXCEPT THE BOWEL PREP. BED AT THE LOWEST POSITION, CALL LIGHT W/I REACH.
[2024-06-02 03:50] VITALS: BP 119/63
[2024-06-02] MEDS ORDERED: Levothyroxine Sodium 0.075 MG Tab PO SCH (06:00)
[2024-06-02] MEDS ORDERED: Omeprazole 20 MG CapCR PO SCH (06:00)
--- NOTE | 2024-06-02 06:01 | NUR ---
SHIFT SUMMARY PT NPO. BOWEL PREP COMPLETED. LIQUID BROWN STOOLS. UP TO BSC WITH SBA. PT DENIES A NEED FOR A NAUSEA MEDICATION. DENIES PAIN. NO ACUTE EVENTS DURING THIS SHIFT. NS INFUSING ORDERED. BED AT THE LOWEST POSITION, CALL LIGHT W/I REACH. PLAN IS FOR COLONOSCOPY AND ENDOSCOPY UUPER BY DR. CAMPBELL TODAY.
[2024-06-02 07:32] LABS: Hematocrit 38.3 % (33.0-51.0); Hemoglobin 12.7 g/dL (11.5-16.0)
[2024-06-02 07:37] LABS: BASOPHILS ABSOLUTE AUTO 0.04 K/mm3 (0.00-0.23); BASOPHILS PERCENT AUTO 1 % (0-2); EOSINOPHILS ABSOLUTE AUTO 0.29 K/mm3 (0.00-0.68); EOSINOPHILS PERCENT AUTO 3 % (0-6); Hematocrit 38.4 % (33.0-51.0); Hemoglobin 12.7 g/dL (11.5-16.0); IMMATURE GRAN ABSOLUTE AUTO 0.03 K/mm3 (0.00-0.10); IMMATURE GRAN PERCENT AUTO 0 % (0-1); LYMPHOCYTES ABSOLUTE AUTO 1.26 K/mm3 (0.84-5.20); LYMPHOCYTES PERCENT AUTO 14 % (21-46); MONOCYTES PERCENT AUTO 7 % (4-13); Mean Corpuscular HGB 31.2 pg (26.0-34.0); Mean Corpuscular HGB Conc 33.1 g/dL (31.5-36.5); Mean Corpuscular Volume 94 fL (80-100); Mean Platelet Volume 9.8 fL (9.1-12.4); NEUTROPHILS ABSOLUTE AUTO 6.66 K/mm3 (1.96-9.15); NEUTROPHILS PERCENT AUTO 75 % (41-73); Platelet Count 351 K/mm3 (150-400); RDW Coefficient Variation 14.1 % (11.7-14.2); RDW Standard Deviation 48.6 fL (35.1-46.3); Red Blood Cell Count 4.07 M/mm3 (3.80-5.20); White Blood Cell Count 8.88 K/mm3 (4.00-11.30)
[2024-06-02 07:40] VITALS: BP 120/68
[2024-06-02] MEDS ORDERED: Lactated Ringer's 1,000 ML IV SCH (07:45)
[2024-06-02 07:53] LABS: Albumin, Blood 2.9 g/dL (3.4-5.0); Albumin/Globulin Ratio 0.6 (0.8-1.8); Bilirubin, Total 1.1 mg/dL (0.1-1.0); Bun/Creatinine Ratio 15.6 (12.0-20.0); Calcium, Blood 9.2 mg/dL (8.5-10.1); Creatinine, Blood 1.6 mg/dL (0.40-1.00); Globulin, Blood 4.7 g/dL (2.2-4.0); Potassium, Blood 3.9 mmol/L (3.5-5.5); Total Protein, Blood 7.6 g/dL (6.4-8.2)
[2024-06-02] MEDS ORDERED: Atorvastatin 40 MG Tab PO SCH (09:00)
[2024-06-02] MEDS ORDERED: Amiodarone HCl 200 MG Tab PO SCH (09:00)
[2024-06-02 11:48] VITALS: BP 121/57
[2024-06-02] MEDS ORDERED: propofoL 40 ML IV ONE (12:30)
--- NOTE | 2024-06-02 12:47 | NUR ---
06/02/24 1247 Claire Correia MAC WITH LORENZO LARES; SEE ANESTHESIA RECORDS.
[2024-06-02] MEDS ORDERED: Phenylephrine HCl 100 MCG/ML-NS 10MLSYR (1MG/10ML) ONE (13:23)
[2024-06-02 13:39] VITALS: BP 101/55
[2024-06-02 15:50] VITALS: BP 108/48
--- NOTE | 2024-06-02 16:58 | NUR ---
SHIFT SUMMARY: PATIENT UNDERWENT HER COLONOSCOPY THIS MORNING. SHE WILL NEED TO UNDERGO ANOTHER COLONOSCOPY TUESDAY FOR REMOVAL OF A POLYP SINCE THE DURATION OF ELIQUID BEING HELD HASN'T BEEN LONG ENOUGH. SEE NURSE NOTIFY FROM DR. CALDERA FROM THIS AFTERNOON REGUARDING DIET AND PLAN. PATIENT IN BED RESTING, FAMILY AT BEDSIDE, CALL LIGHT WITHIN REACH, NO SIGNS OR SYMPTOMS OF DISTRESS, PLAN OF CARE ONGOING.
[2024-06-02 22:07] VITALS: BP 118/54
--- NOTE | 2024-06-03 03:02 | NUR ---
SHIFT SUMMARY NO ACUTE EVENTS DURING THIS SHIFT. @HS PT REPORTS FEELING TIRED FROM THE DAY'S COLONOSCOPY/UPPER ENDOSCOPY. NO BM DURING THIS SHIFT. PT RESTING COMFORTABLY T/O THIS SHIFT, RR EVEN, UNLABORED, VSS. NS INFUSING @50MLS/HR ORDERED. PT DENIES PAIN AND DISCOMFORT. BED AT THE LOWEST POSITION, CALL LIGHT W/I REACH. PT IS ABLE TO MAKE HER NEEDS KNOWN.
[2024-06-03 07:55] VITALS: BP 108/51
[2024-06-03 10:15] LABS: BASOPHILS ABSOLUTE AUTO 0.03 K/mm3 (0.00-0.23); BASOPHILS PERCENT AUTO 0 % (0-2); EOSINOPHILS ABSOLUTE AUTO 0.21 K/mm3 (0.00-0.68); EOSINOPHILS PERCENT AUTO 3 % (0-6); Hematocrit 32.7 % (33.0-51.0); Hemoglobin 10.9 g/dL (11.5-16.0); IMMATURE GRAN ABSOLUTE AUTO 0.02 K/mm3 (0.00-0.10); IMMATURE GRAN PERCENT AUTO 0 % (0-1); LYMPHOCYTES ABSOLUTE AUTO 1.02 K/mm3 (0.84-5.20); LYMPHOCYTES PERCENT AUTO 15 % (21-46); MONOCYTES ABSOLUTE AUTO 0.49 K/mm3 (0.16-1.47); MONOCYTES PERCENT AUTO 7 % (4-13); Mean Corpuscular HGB 31.2 pg (26.0-34.0); Mean Corpuscular HGB Conc 33.3 g/dL (31.5-36.5); Mean Corpuscular Volume 94 fL (80-100); Mean Platelet Volume 10.1 fL (9.1-12.4); NEUTROPHILS ABSOLUTE AUTO 5.06 K/mm3 (1.96-9.15); NEUTROPHILS PERCENT AUTO 74 % (41-73); Platelet Count 304 K/mm3 (150-400); RDW Coefficient Variation 14.4 % (11.7-14.2); RDW Standard Deviation 49.3 fL (35.1-46.3); Red Blood Cell Count 3.49 M/mm3 (3.80-5.20); White Blood Cell Count 6.83 K/mm3 (4.00-11.30)
[2024-06-03 10:33] LABS: Albumin, Blood 2.3 g/dL (3.4-5.0); Albumin/Globulin Ratio 0.5 (0.8-1.8); Bilirubin, Total 0.7 mg/dL (0.1-1.0); Bun/Creatinine Ratio 14.3 (12.0-20.0); Calcium, Blood 8.6 mg/dL (8.5-10.1); Creatinine, Blood 1.4 mg/dL (0.40-1.00); Globulin, Blood 4.3 g/dL (2.2-4.0); Potassium, Blood 3.4 mmol/L (3.5-5.5); Total Protein, Blood 6.6 g/dL (6.4-8.2)
--- NOTE | 2024-06-03 16:06 | NUR ---
SHIFT SUMMARY PATIENT ABLE TO USE BSC AND WAS ABLE TO SHOWER THIS SHIFT. NEW IV STARTED TO RIGHT HAND, OBSERVING L SIDED NO USE PRECAUTIONS, NS INFUSING AT 50. NO BM, YELLOW URINE. TOLERATING DIET WELL. CALL LIGHT IN REACH, CARES ONGOING.
[2024-06-03 17:38] VITALS: BP 112/55
[2024-06-03 21:07] VITALS: BP 104/49
--- NOTE | 2024-06-04 04:00 | NUR ---
SHIFT SUMMARY NO ACUTE EVENTS DURING THIS SHIFT. PT IS AWARE OF THIS MORNING'S PLANS SHE IS STARTING GOLITELY @0530. PT RESTING COMFORTABLY T/O THE NIGHT HOURS, NO PO INTAKE SINCE HS PER PT'S PREFERENCE. BED AT THE LOWEST POSITION, CALL LIGHT W/I REACH. PT IS PLEASANT, A/O X4, ABLE TO MAKE HER NEEDS KNOWN AND COOPERATIVE WITH CARE.
[2024-06-04 05:24] LABS: BASOPHILS ABSOLUTE AUTO 0.03 K/mm3 (0.00-0.23); BASOPHILS PERCENT AUTO 0 % (0-2); EOSINOPHILS ABSOLUTE AUTO 0.38 K/mm3 (0.00-0.68); EOSINOPHILS PERCENT AUTO 6 % (0-6); Hematocrit 31.2 % (33.0-51.0); Hemoglobin 10.5 g/dL (11.5-16.0); IMMATURE GRAN ABSOLUTE AUTO 0.03 K/mm3 (0.00-0.10); IMMATURE GRAN PERCENT AUTO 0 % (0-1); LYMPHOCYTES ABSOLUTE AUTO 1.36 K/mm3 (0.84-5.20); LYMPHOCYTES PERCENT AUTO 20 % (21-46); MONOCYTES ABSOLUTE AUTO 0.72 K/mm3 (0.16-1.47); MONOCYTES PERCENT AUTO 11 % (4-13); Mean Corpuscular HGB 31.3 pg (26.0-34.0); Mean Corpuscular HGB Conc 33.7 g/dL (31.5-36.5); Mean Corpuscular Volume 93 fL (80-100); Mean Platelet Volume 10.2 fL (9.1-12.4); NEUTROPHILS ABSOLUTE AUTO 4.25 K/mm3 (1.96-9.15); NEUTROPHILS PERCENT AUTO 63 % (41-73); Platelet Count 283 K/mm3 (150-400); RDW Coefficient Variation 14.3 % (11.7-14.2); RDW Standard Deviation 48.6 fL (35.1-46.3); Red Blood Cell Count 3.36 M/mm3 (3.80-5.20); White Blood Cell Count 6.77 K/mm3 (4.00-11.30)
[2024-06-04] MEDS ORDERED: Peg/Electrolytes 4,000 ML BTL PO ONE (05:30)
[2024-06-04 05:54] LABS: Bun/Creatinine Ratio 12.2 (12.0-20.0); Calcium, Blood 8.2 mg/dL (8.5-10.1); Creatinine, Blood 1.39 mg/dL (0.40-1.00); Magnesium, Blood 1.7 mg/dL (1.6-2.4); Phosphorus, Blood 2.9 mg/dL (2.5-4.9); Potassium, Blood 3.3 mmol/L (3.5-5.5)
--- NOTE | 2024-06-04 06:46 | NUR ---
@[address] CALDERA'S CELL PHONE IN ORDER TO LET HIM KNOW THAT PT FINISHING LAST 8 OZ CUP OF GOLITELY. NO BM OF YET AT 0647. PLAN IS REPEAT COLONOSCOPY WITH POLYP REMOVAL TODAY.
[2024-06-04 07:54] VITALS: BP 140/70
[2024-06-04 11:56] VITALS: BP 127/56
[2024-06-04] MEDS ORDERED: propofoL 40 ML IV ONE (12:10)
--- NOTE | 2024-06-04 12:23 | NUR ---
06/04/24 1223 Juan Portillo MONITOR INTACT WITH CONTINUOUS PULSE OXIMETRY, CONTINUOUS END TITAL CO2, 3-LEAD EKG AND INTERMITTENT BLOOD PRESSURE. ANESTHESIA PER DR. ODONNELL
[2024-06-04 13:26] VITALS: BP 102/50
[2024-06-04 14:41] VITALS: BP 107/50
--- NOTE | 2024-06-04 17:46 | NUR ---
THIS RN CALLED AT THE PT'S REQUEST FOR D/C PLAN AT APPROX 1630. NO ANSWER, VM LEFT.
--- NOTE | 2024-06-04 18:01 | NUR ---
SHIFT SUMMARY PT A&OX4, VSS, AMB W/ ASSIST TO THE BSC, TOLERATING PO, VOIDING, AND DENIED PAIN. PROCEDURE COMPLETED THIS SHIFT. CALL LIGHT WITHIN REACH AND PT ABLE TO MAKE NEEDS KNOWN.
[2024-06-04 19:26] VITALS: BP 99/69
[2024-06-05 05:23] VITALS: BP 125/59
--- NOTE | 2024-06-05 05:39 | NUR ---
Shift Summary No acute changes. Per report pt had polyp removed 06/04. No bleeding of any kind this shift. She rcvd NS @ 50 ml/hr t/o the night as ordered. She is AOx4, 1 assist to BS. She slept very little but was able to rest comfortably.
[2024-06-05 07:41] VITALS: BP 104/64
[2024-06-05 08:22] LABS: BASOPHILS ABSOLUTE AUTO 0.03 K/mm3 (0.00-0.23); BASOPHILS PERCENT AUTO 0 % (0-2); EOSINOPHILS ABSOLUTE AUTO 0.23 K/mm3 (0.00-0.68); EOSINOPHILS PERCENT AUTO 3 % (0-6); Hematocrit 30.8 % (33.0-51.0); Hemoglobin 10.4 g/dL (11.5-16.0); IMMATURE GRAN ABSOLUTE AUTO 0.03 K/mm3 (0.00-0.10); IMMATURE GRAN PERCENT AUTO 0 % (0-1); LYMPHOCYTES ABSOLUTE AUTO 0.79 K/mm3 (0.84-5.20); LYMPHOCYTES PERCENT AUTO 11 % (21-46); MONOCYTES ABSOLUTE AUTO 0.71 K/mm3 (0.16-1.47); MONOCYTES PERCENT AUTO 10 % (4-13); Mean Corpuscular HGB 31.2 pg (26.0-34.0); Mean Corpuscular HGB Conc 33.8 g/dL (31.5-36.5); Mean Corpuscular Volume 93 fL (80-100); Mean Platelet Volume 9.8 fL (9.1-12.4); NEUTROPHILS ABSOLUTE AUTO 5.15 K/mm3 (1.96-9.15); NEUTROPHILS PERCENT AUTO 74 % (41-73); Platelet Count 267 K/mm3 (150-400); RDW Coefficient Variation 14.3 % (11.7-14.2); RDW Standard Deviation 47.8 fL (35.1-46.3); Red Blood Cell Count 3.33 M/mm3 (3.80-5.20); White Blood Cell Count 6.94 K/mm3 (4.00-11.30)
[2024-06-05 08:42] LABS: Calcium, Blood 8.4 mg/dL (8.5-10.1); Creatinine, Blood 1.2 mg/dL (0.40-1.00); Potassium, Blood 3.4 mmol/L (3.5-5.5)
[2024-06-05] MEDS ORDERED: Apixaban 5 MG Tab PO SCH (09:00)
[2024-06-05] MEDS ORDERED: ONDA4 PO (09:59)
[2024-06-05] MEDS ORDERED: OMEP20ER PO (09:59)
[2024-06-05] MEDS ORDERED: ATOR40TA PO (09:59)
--- NOTE | 2024-06-05 10:15 | NUR ---
DISCHARGE NOTE PT D/C HOME AT 1009. PT AND PT'SA DAUGHTER PROVIDED W/ VERBAL AND WRITTEN INSTRUCTIONS AND REPORTED UNDERSTANDING. PT A&OX4, VSS, AMB W/ ASSIST, TOLERATING PO, VOIDING, AND DENIED PAIN. BELONGINGS WERE RETURNED AND PT ESCOURTED OUT VIA W/C BY SABINE GUTIERREZ.
== END 2024-06-05 10:12 | disposition home or self-care (01) ==
LOC: ER 01:16 → MEDS 01:17 → ERHOLD 01:17 → MEDS 03:23
PROVIDERS: Emergency Medicine; Hospitalist; Internal Medicine; Internal Medicine Gastroenterology; ADMIT Student in an Organized Health Care Education/Training Program
PROC: 0DB68ZX Excision of Stomach, Via Natural or Artificial Opening Endoscopic, Diagnostic (ICD-10-PCS; principal; 2024-06-02 10:30)
PROC: 0DBK8ZX Excision of Ascending Colon, Via Natural or Artificial Opening Endoscopic, Diagnostic (ICD-10-PCS; 2024-06-02 10:30)
PROC: 0DBN8ZZ Excision of Sigmoid Colon, Via Natural or Artificial Opening Endoscopic (ICD-10-PCS; 2024-06-04)
PROC: 0DBN8ZX Excision of Sigmoid Colon, Via Natural or Artificial Opening Endoscopic, Diagnostic (ICD-10-PCS; 2024-06-04 12:00)
DX: D12.5 Benign neoplasm of sigmoid colon (principal); D12.2 Benign neoplasm of ascending colon; K63.5 Polyp of colon; K31.89 Other diseases of stomach and duodenum; K29.50 Unspecified chronic gastritis without bleeding; K31.A19 Gastric intestinal metaplasia without dysplasia, unspecified site; I25.10 Atherosclerotic heart disease of native coronary artery without angina pectoris; I13.0 Hypertensive heart and chronic kidney disease with heart failure and stage 1 through stage 4 chronic kidney disease, or unspecified chronic kidney disease; N18.4 Chronic kidney disease, stage 4 (severe); I50.32 Chronic diastolic (congestive) heart failure; N25.81 Secondary hyperparathyroidism of renal origin; I48.0 Paroxysmal atrial fibrillation; J90 Pleural effusion, not elsewhere classified; E03.9 Hypothyroidism, unspecified; E78.5 Hyperlipidemia, unspecified; M81.0 Age-related osteoporosis without current pathological fracture; Z66 Do not resuscitate; Z79.01 Long term (current) use of anticoagulants; Z79.890 Hormone replacement therapy; Z79.899 Other long term (current) drug therapy; Z87.891 Personal history of nicotine dependence; Z85.3 Personal history of malignant neoplasm of breast; Z88.1 Allergy status to other antibiotic agents; Z88.5 Allergy status to narcotic agent; Z88.8 Allergy status to other drugs, medicaments and biological substances
CPT/HCPCS: 36415; 72070; 80048; 80053; 82947; 83735; 84100; 85014; 85018; 85025; 88305; 88342; 96365; 99285; A9270; G0378; J2371; J2704; J3480; J7030; J7120